=== PATIENT | female | born 1985 | race Native Hawaiian/Other Pacific Islander ===

== ENCOUNTER 2018-08-26 17:34 | Emergency (ER) | payer OTHER ==
[2018-08-26 18:19] LABS: Basophils % (A) 1 %; Eosinophils # (A) 0.2 k/uL (0-0.7); Eosinophils % (A) 3 %; HCT 40.8 % (34.0-46.0); HGB 13.1 gm/dL (11.4-16.0); Lymphocytes # (A) 2.7 k/uL (1.0-4.8); Lymphocytes % (A) 37 %; MCH 28.2 pg (25.0-35.0); MCHC 32.2 g/dL (31.0-37.0); MCV 87.7 fL (80.0-100.0); Monocytes # (A) 0.5 k/uL (0-1.0); Monocytes % (A) 7 %; Neutrophils # (A) 3.7 k/uL (1.3-7.7); Neutrophils % (A) 52 %; Platelet Count 298 k/uL (150-450); RBC 4.66 m/uL (3.80-5.40); RDW 13.1 % (11.5-15.5); WBC 7.2 k/uL (3.8-10.6)
[2018-08-26 18:27] LABS: Amorphous Sediment,Urine Rare /hpf; Appearance,Urine Cloudy (Clear); Bacteria,Urine Moderate /hpf; Bilirubin,Urine Negative (Negative); Blood,Urine Small (Negative); Color,Urine Yellow; Glucose,Urine (UA) Negative (Negative); Ketones,Urine Negative (Negative); Leukocyte Esterase,Urine Negative (Negative); Mucus,Urine Few /hpf; Nitrite,Urine Negative (Negative); Protein,Urine Trace (Negative); RBC,Urine 7 /hpf (0-5); Specific Gravity,Urine 1.025 (1.001-1.035); Squamous Epithelial Cell,Urine 7 /hpf (0-4); WBC,Urine 2 /hpf (0-5)
[2018-08-26 18:31] LABS: ALT 19 U/L (9-52); AST 24 U/L (14-36); Albumin 4.6 g/dL (3.5-5.0); Alkaline Phosphatase 55 U/L (38-126); Anion Gap 10 mmol/L; Blood Urea Nitrogen 12 mg/dL (7-17); Calcium 9.8 mg/dL (8.4-10.2); Carbon Dioxide 25 mmol/L (22-30); Chloride 106 mmol/L (98-107); Glucose 117 mg/dL (74-99); Potassium 3.8 mmol/L (3.5-5.1); Sodium 141 mmol/L (137-145); Total Bilirubin 0.6 mg/dL (0.2-1.3); Total Protein 7.9 g/dL (6.3-8.2)
[2018-08-26 18:35] LABS: Partial Thromboplastin Time 25.7 sec (22.0-30.0); Prothrombin Time 10.2 sec (9.0-12.0)
[2018-08-26 18:41] LABS: Creatine Kinase 56 U/L (30-135)
--- NOTE | 2018-08-26 18:44 | ED ---
Chest Pain HPI <Edmund Guerrero - Last Filed: 08/26/18 19:53> - General Source: patient Mode of arrival: wheelchair Limitations: no limitations <Candy Galvan - Last Filed: 08/26/18 20:11> - General Chief Complaint: Chest Pain Stated Complaint: Chest pain Time Seen by Provider: 08/26/18 17:53 - History of Present Illness Initial Comments: 33-year-old female who denies past medical history presenting today for chief complaint of sensation of chest pressure. Patient states that over the past 5 years she has had episodes at night that occur randomly of her heart racing for a few minutes. She was told to f/u with nut steamer in [place] where she has been attending school and seeking medical attention for the past year. Patient states that she has had in the past year, two 72 hour heart monitors, multiple EKGs and extensive laboratory testing which she stated was all negative. She stated this included thyroid workup. Today patient woke up this morning around 6 AM she states she had chest pressure that occurred for an hour. Patient denies any correlation with ambulation. Patient states that she was sitting at the car with her the onset. Patient denies any syncope, fever, chills, pleuritic chest pain, dizziness, chest pain, hemoptysis, and surgery or trauma including fracture, headache, dyspnea, dyspnea with exertion, unilateral or bilateral lower extremity swelling, history of heart murmur, recent travel, past DVT or pulmonary embolism, calf pain, history of cancer or strenuous. When pt had multiple episodes of chest pressure today that occurred at random times with no pattern pt decided to present to the emergency department today. Upon arrival pt O2 saturation 99%, HR 93 remainder of VS WNL. (Candy Galvan) - Related Data Home Medications Medication Instructions Recorded Confirmed No Known Home Medications 08/26/18 08/26/18 Allergies Allergy/AdvReac Type Severity Reaction Status Date / Time No Known Allergies Allergy Verified 08/26/18 18:15 Review of Systems ROS Other: All systems not noted in ROS Statement are negative. <Edmund Guerrero - Last Filed: 08/26/18 19:53> ROS Other: All systems not noted in ROS Statement are negative. Constitutional: Denies: fever, chills, weight change, night sweats Eyes: Denies: vision change ENT: Denies: ear pain, throat pain Respiratory: Denies: cough, dyspnea, wheezes, hemoptysis, stridor Cardiovascular: Reports: as per HPI, chest pain (c). Denies: palpitations, dyspnea on exertion, orthopnea, edema, syncope Gastrointestinal: Denies: abdominal pain, nausea, vomiting, diarrhea, constipation, hematemesis, melena Genitourinary: Denies: frequency Musculoskeletal: Denies: back pain, joint swelling, arthralgia Skin: Denies: rash <MandyCandy L - Last Filed: 08/26/18 20:11> ROS Statement: Those systems with pertinent positive or pertinent negative responses have been documented in the HPI. EKG Findings - EKG Comments: EKG Findings:: Ventricular rate 70 beats parents VA interval 166 ms QRS duration 116 ms QT/QTC 376/428 ms this is normal sinus rhythm. No ST elevation or T wave inversion concerning for ACS. <RowdyelizCandy L - Last Filed: 08/26/18 20:11> Past Medical History Past Medical History: No Reported History History of Any Multi-Drug Resistant Organisms: None Reported Past Surgical History: No Surgical Hx Reported Past Psychological History: No Psychological Hx Reported Smoking Status: Former smoker Past Alcohol Use History: None Reported Past Drug Use History: None Reported <Candy Galvan - Last Filed: 08/26/18 20:11> General Exam <Edmund Guerrero - Last Filed: 08/26/18 19:53> Limitations: no limitations <Tania Galvankhai Hardin - Last Filed: 08/26/18 20:11> - General Exam Comments Initial Comments: General: The patient is awake and alert, in no distress, and does not appear acutely ill. Eye: Pupils are equal, round and reactive to light, extra-ocular movements are intact. No nystagmus. There is normal conjunctiva bilaterally. No signs of icterus. Ears, nose, mouth and throat: There are moist mucous membranes and no oral lesions. Neck: The neck is supple, there is no tenderness or JVD. Cardiovascular: There is a regular rate and rhythm. No murmur, rub or gallop is appreciated. No audible friction rubs. No carotid artery bruits. Respiratory: Lungs are clear to auscultation, respirations are non-labored, breath sounds are equal. No wheezes, stridor, rales, or rhonchi. Musculoskeletal: Normal ROM, no tenderness. Strength 5/5. Sensation intact. Radial pulses equal bilaterally 2+. Neurological: A&O x 3. CN II-XII intact, There are no obvious motor or sensory deficits. Coordination appears grossly intact. Speech is normal. Skin: Skin is warm and dry and no rashes or lesions are noted. No LE edema. Psychiatric: Cooperative, appropriate mood & affect, normal judgment. (Candy Galvan) Course <Edmund Guerrero - Last Filed: 08/26/18 19:53> <Candy Galvan - Last Filed: 08/26/18 20:11> Vital Signs 08/26/18 08/26/18 17:47 18:49 Temperature 97.6 F 98 F Pulse Rate 91 87 Respiratory 18 18 Rate Blood Pressure 136/88 128/77 O2 Sat by Pulse 100 99 Oximetry - Reevaluation(s) Reevaluation #1: 08/26/18 19:53 Patient reevaluated by myself, Dr. Guerrero. Patient resting comfortably in bed. Patient has no discomfort at this time. Patient states majority of her symptoms were between 7 and 8 AM. Patient is updated on results. Patient is made aware of limitations of tests in the emergency department including delay and troponin testing as well as potential for unrecognized disease and need for stress test. Patient is offered admission however does refuse. Patient is willing to follow up with her primary care physician. Patient states she has been having similar symptoms for years however usually has more palpitations and discomfort. Patient denies any associated dyspnea, nausea, or diaphoresis. states symptoms are only at rest and resolved with exertion. (Edmund Guerrero ) Chest Pain MDM <Edmund Guerrero - Last Filed: 08/26/18 19:53> - Wells Criteria Clinical Symptoms of DVT: (0) No No Alternative Diagnosis: (0) No Immobilization of Surgery in Previous 4 Weeks: (0) No Previous DVT/PE: (0) No Hemoptysis: (0) No Malignancy: (0) No - PERC Rule Heart Rate < 100: (0) No g: (0) No No Prior History pf DVT/PE: (0) No No Recent Trauma or Surgery: (0) No Hemoptysis: (0) No No Exogenous Estrogen: (0) No No Clinical Signs Suggesting DVT: (0) No - ALEXANDRE Score Age > 65: (0) No 3 or more CAD Risk Factors: (0) No Known CAD with more than 50% Stenosis: (0) No Aspirin use within the Past 7 Days: (0) No Elevated Cardiac Markers: (0) No ST Deviation Greater than 0.5mm: (0) No <Candy Galvan - Last Filed: 08/26/18 20:11> - [facility] EKG interrpreted by Dr. Guerrero revealed no signs symptoms of ACS. Labs unremarkable, UA revealed RBC pt denies urinary symptoms and states she may be beginning menstruation. CXR revealed no changes from 2013. PERC (-). 99% on RA , normal rate. Heart score < 3. Low suspicion for ACS or PE. Results discussed with pt. Pt evaluated by Dr. Guerrero. We discussed observation with cardiac telemetry pt deferred this. At this time we feel pt is stable for d/c with PCP and cardiology f/u. We recommended Echo, event monitor and stress testing. Pt agreed. Return parameters were discussed the patient. This time patient denies symptoms, patient is stable for discharge. (Candy Galvan) Disposition <Edmund Guerrero - Last Filed: 08/26/18 19:53> Is patient prescribed a controlled substance at d/c from ED?: No Time of Disposition: 20:02 <Candy Galvan - Last Filed: 08/26/18 20:11> Clinical Impression: Chest tightness or pressure Disposition: HOME SELF-CARE Condition: Good Instructions: Chest Pain (ED) Additional Instructions: Please use medication as discussed. Please follow-up with cardiology within next week and primary care provider in next 1-2 days. Please return to emergency room if the symptoms increase or worsen or for any other concerns, as discussed. Referrals: Yesenia Suero MD [Primary Care Provider] - 1-2 days Morgan Sullivan MD [STAFF PHYSICIAN] - 1-2 days
[2018-08-26 18:54] LABS: Creatine Kinase MB <0.2 ng/mL (0.0-2.4); Troponin I <0.012 ng/mL (0.000-0.034)
--- NOTE | 2018-08-26 19:23 | XR ---
EXAMINATION TYPE: XR chest 2V DATE OF EXAM: 08/26/2018 COMPARISON: Chest x-ray June 12, 2013 HISTORY: Chest pain and heaviness. TECHNIQUE: Frontal and lateral views of the chest are obtained. FINDINGS: There is mild biapical pleural/parenchymal scarring redemonstrated. There is no focal air space opacity, pleural effusion, or pneumothorax seen. The cardiac silhouette size is within normal limits. The osseous structures are intact. IMPRESSION: No acute cardiopulmonary process. No significant change from prior.
[2018-08-26 20:22] VITALS: BP 125/70; PULSE 84; RESP 16; TEMP 98.2
== END 2018-08-26 20:22 | disposition home or self-care (01) ==
LOC: EC 17:34
DX: R07.89 Other chest pain (principal); Z87.891 Personal history of nicotine dependence
CPT/HCPCS: 36415; 71046; 80053; 81001; 81025; 82550; 82553; 83735; 84484; 85025; 85610; 85730; 93005; 99285

== ENCOUNTER 2020-09-03 23:39 | Emergency (ER) | payer OTHER ==
[2020-09-04 00:07] VITALS: RESP 18
[2020-09-04] MEDS ORDERED: ACETAMINOPHEN TAB 325 MG TAB PO STA (00:08)
[2020-09-04] MEDS ORDERED: SODIUM CHLORIDE 0.9% 1,000 ML IV SCH (00:15)
[2020-09-04 00:36] LABS: Amorphous Sediment,Urine Rare /hpf; Appearance,Urine Cloudy (Clear); Bacteria,Urine Rare /hpf; Bilirubin,Urine Negative (Negative); Blood,Urine Trace (Negative); Color,Urine Yellow; Glucose,Urine (UA) Negative (Negative); Ketones,Urine Negative (Negative); Leukocyte Esterase,Urine Negative (Negative); Mucus,Urine Rare /hpf; Nitrite,Urine Negative (Negative); Protein,Urine Negative (Negative); RBC,Urine 4 /hpf (0-5); Specific Gravity,Urine 1.014 (1.001-1.035); Squamous Epithelial Cell,Urine 6 /hpf (0-4); WBC,Urine 2 /hpf (0-5)
[2020-09-04] MEDS: SODIUM CHLORIDE 0.9% 500 ML 500 ML IV SCH ×3 (00:47→01:49)
[2020-09-04 00:57] LABS: Basophils # (A) 0.1 k/uL (0-0.2); Basophils % (A) 2 %; Eosinophils # (A) 0.1 k/uL (0-0.7); Eosinophils % (A) 1 %; HCT 43.9 % (34.0-46.0); HGB 14.4 gm/dL (11.4-16.0); Lymphocytes # (A) 0.6 k/uL (1.0-4.8); Lymphocytes % (A) 9 %; MCH 29.9 pg (25.0-35.0); MCHC 32.8 g/dL (31.0-37.0); Mean Platelet Volume 7.2; Monocytes # (A) 0.4 k/uL (0-1.0); Monocytes % (A) 8 %; Neutrophils # (A) 4.6 k/uL (1.3-7.7); Neutrophils % (A) 79 %; Platelet Count 295 k/uL (150-450); RBC 4.83 m/uL (3.80-5.40); RDW 12.7 % (11.5-15.5); WBC 5.9 k/uL (3.8-10.6)
--- NOTE | 2020-09-04 01:01 | XR ---
EXAMINATION TYPE: XR chest 2V DATE OF EXAM: 09/04/2020 COMPARISON: 08/26/2018 HISTORY: Fever TECHNIQUE: FINDINGS: Heart and mediastinum are normal. Lungs are clear. Diaphragm is normal. Bony thorax appears normal. Pulmonary vascularity is normal. There are chest leads. IMPRESSION: Normal chest. No change.
[2020-09-04 01:05] LABS: ALT 13 U/L (4-34); AST 26 U/L (14-36); African American GFR (CKD) >90 (>60 ml/min/1.73 sqM); Albumin 4.2 g/dL (3.5-5.0); Alkaline Phosphatase 62 U/L (38-126); Anion Gap 8 mmol/L; Blood Urea Nitrogen 9 mg/dL (7-17); Calcium 8.9 mg/dL (8.4-10.2); Carbon Dioxide 25 mmol/L (22-30); Chloride 101 mmol/L (98-107); Creatine Kinase 69 U/L (30-135); Glucose 102 mg/dL (74-99); LDH 450 U/L (313-618); Non-African American GFR(CKD) >90 (>60 ml/min/1.73 sqM); Potassium 3.5 mmol/L (3.5-5.1); Sodium 134 mmol/L (137-145); Total Bilirubin 0.7 mg/dL (0.2-1.3)
[2020-09-04 01:13] LABS: Partial Thromboplastin Time 24.6 sec (22.0-30.0); Prothrombin Time 10.3 sec (9.0-12.0)
[2020-09-04 01:18] LABS: D-Dimer 0.64 mg/L FEU (<0.60)
[2020-09-04] MEDS ORDERED: HYDROmorphone 0.5 MG/0.5 ML SYRINGE IVP STA (02:01)
--- NOTE | 2020-09-04 02:09 | CT ---
EXAMINATION TYPE: CT chest angio for PE DATE OF EXAM: 09/04/2020 COMPARISON: None HISTORY: elevated d-dimer CT DLP: 201.2 mGycm Automated exposure control for dose reduction was used. CONTRAST: Performed with IV Contrast, patient injected with 60 mL of Isovue 370. There are 3-D post processed images. Lungs are clear of infiltrate. There is no pleural effusion. There is no evidence of a pulmonary mass . Mediastinum is normal. There are no hilar masses. Thoracic aorta appears normal. There is no aneurysm or dissection. There is normal contrast opacification of the pulmonary arteries. There are no filling defects. The thoracic spine is intact. There is no compression fracture. The ribs appear intact. Upper abdomin al soft tissues are intact. IMPRESSION: Negative exam. No evidence of pulmonary embolism.
--- NOTE | 2020-09-04 03:01 | ED ---
Fever HPI - General Chief Complaint: Fever Stated Complaint: Fever Time Seen by Provider: 09/04/20 00:25 Source: patient Mode of arrival: ambulatory Limitations: no limitations - History of Present Illness Initial Comments: 35-year-old female presenting today for chief complaint of fever headache body aches. Patient states yesterday she felt completely normal but today she developed chills and general malaise fatigue as well as a headache. She denies any neck stiffness or pain. She denies any visual changes sensitivity to lights. She denies sudden onset of headache. Patient denies any IV drug use cough or upper respiratory symptoms. She denies abdominal pain pelvic pain and vaginal discharge dysuria or urgency frequency. Patient denies any localizing symptoms she states she only has body aches of the toe she states is a burning pain in all her muscles. Denies nausea, vomiting. Patient sates she has not experienced this in the past patient states she was concerned of Covid she states she has no known exposure specifically. Patient states that when she continued to feel unwell and her friend felt her forehead stating she felt very warm and brought her to the ER. Patient has no additional complaints. Upon arrival he appears well nontoxic. - Related Data Home Medications Medication Instructions Recorded Confirmed No Known Home Medications 08/26/18 08/26/18 Allergies Allergy/AdvReac Type Severity Reaction Status Date / Time No Known Allergies Allergy Verified 09/04/20 00:07 Review of Systems ROS Statement: Those systems with pertinent positive or pertinent negative responses have been documented in the HPI. ROS Other: All systems not noted in ROS Statement are negative. Past Medical History Past Medical History: No Reported History History of Any Multi-Drug Resistant Organisms: None Reported Past Surgical History: No Surgical Hx Reported Past Psychological History: No Psychological Hx Reported Smoking Status: Never smoker Past Alcohol Use History: Occasional Past Drug Use History: None Reported General Exam - General Exam Comments Initial Comments: General: The patient is awake and alert, in no distress Eye: +3 mm pupils are equal, round and reactive to light, extra-ocular movements are intact. No nystagmus. There is normal conjunctiva bilaterally. No signs of icterus. No photophobia Ears, nose, mouth and throat: There are moist mucous membranes and no oral lesions. Oropharynx nonerythematous uvula midline. TM WNL. Neck: The neck is supple, there is no tenderness or JVD. Negative Brudzinski negative Kernig no nuchal rigidity Cardiovascular: There is a regular rate and rhythm. No murmur, rub or gallop is appreciated. Respiratory: Lungs are clear to auscultation, respirations are non-labored, breath sounds are equal. No wheezes, stridor, rales, or rhonchi. Gastrointestinal: Soft, non-distended, non-tender abdomen without masses or organomegaly noted. There is no rebound or guarding present. Musculoskeletal: Normal ROM, no tenderness. Strength 5/5. Sensation intact. Radial pulses equal bilaterally 2+. Neurological: A&O x 3. CN II-XII intact, There are no obvious motor or sensory deficits. Coordination appears grossly intact. Speech is normal. Skin: Skin is warm and dry and no rashes or lesions are noted. No LE edema. No tract davila. Psychiatric: Cooperative, appropriate mood & affect, normal judgment. Limitations: no limitations Course Vital Signs 09/04/20 09/04/20 00:03 03:00 Temperature 103.5 F H 98.3 F Pulse Rate 117 H 97 Respiratory 18 18 Rate Blood Pressure 144/86 123/82 O2 Sat by Pulse 99 98 Oximetry - Reevaluation(s) Reevaluation #1: On reevaluation patient states headache resolved, fever trending downward. continues to appear well nontoxic. Medical Decision Making - Medical Decision Making 35yo female presenting with fever. no localizing symptoms complains of myalgias. Denies IVDU. Patient appears well nontoxic very acting and happily talking with friend/ laughing in good spirits Patient has no localizing exam findings. SKine exa,m WNL. Abdomen soft. No meningeal irritation signs. Patient after fever controlled, pain medications given states headaches completely resolved. Labs no leukocytosis. Blood cultures pending. Dimer mildly elevated, CTA (-) for acute process, no pneumonia identified nor PE. Patient covid test pending. givne patient well appearance, vaccination status, no hx concerning for immunoc ompromise I feel patient is stable for discharge with PCP f/u. return parameters. Patient case discussed at length with attendin nicci reviewed imaging and labs Dr. Hinkle is agreeable to discharge as well as patient. Patient instructed on symptomatic treatment, educated on return parametrs. Discharged appearing well nontoxic. - Lab Data Result diagrams: 09/04/20 00:15 09/04/20 00:15 Lab Results 09/04/20 09/04/20 09/04/20 Range/Units 00:15 00:15 00:15 WBC 5.9 (3.8-10.6) k/uL RBC 4.83 (3.80-5.40) m/uL Hgb 14.4 (11.4-16.0) gm/dL Hct 43.9 (34.0-46.0) % MCV 91.0 (80.0-100.0) fL MCH 29.9 (25.0-35.0) pg MCHC 32.8 (31.0-37.0) g/dL RDW 12.7 (11.5-15.5) % Plt Count 295 (150-450) k/uL Neutrophils % 79 % Lymphocytes % 9 % Monocytes % 8 % Eosinophils % 1 % Basophils % 2 % Neutrophils # 4.6 (1.3-7.7) k/uL Lymphocytes # 0.6 L (1.0-4.8) k/uL Monocytes # 0.4 (0-1.0) k/uL Eosinophils # 0.1 (0-0.7) k/uL Basophils # 0.1 (0-0.2) k/uL PT 10.3 (9.0-12.0) sec INR 1.0 (<1.2) APTT 24.6 (22.0-30.0) sec D-Dimer 0.64 H (<0.60) mg/L FEU Sodium (137-145) mmol/L Potassium (3.5-5.1) mmol/L Chloride (98-107) mmol/L Carbon Dioxide (22-30) mmol/L Anion Gap mmol/L BUN (7-17) mg/dL Creatinine (0.52-1.04) mg/dL Est GFR (CKD-EPI)AfAm (>60 ml/min/1.73 sqM) Est GFR (CKD-EPI)NonAf (>60 ml/min/1.73 sqM) Glucose (74-99) mg/dL Plasma Lactic Acid Ryne (0.7-2.0) mmol/L Calcium (8.4-10.2) mg/dL Ferritin (10.0-291.0) ng/mL Total Bilirubin (0.2-1.3) mg/dL AST (14-36) U/L ALT (4-34) U/L Alkaline Phosphatase (38-126) U/L Lactate Dehydrogenase (313-618) U/L Creatine Kinase (30-135) U/L Total Protein (6.3-8.2) g/dL Albumin (3.5-5.0) g/dL Urine Color Urine Appearance (Clear) Urine pH (5.0-8.0) Ur Specific Republic (1.001-1.035) Urine Protein (Negative) Urine Glucose (UA) (Negative) Urine Ketones (Negative) Urine Blood (Negative) Urine Nitrite (Negative) Urine Bilirubin (Negative) Urine Urobilinogen (<2.0) mg/dL Ur Leukocyte Esterase (Negative) Urine RBC (0-5) /hpf Urine WBC (0-5) /hpf Ur Squamous Epith Cells (0-4) /hpf Amorphous Sediment (None) /hpf Urine Bacteria (None) /hpf Urine Mucus (None) /hpf Urine HCG, Qual Not Detected (Not Detectd) Influenza Type A RNA (Not Detectd) Influenza Type B (PCR) (Not Detectd) 09/04/20 09/04/20 09/04/20 Range/Units 00:15 00:15 00:15 WBC (3.8-10.6) k/uL RBC (3.80-5.40) m/uL Hgb (11.4-16.0) gm/dL Hct (34.0-46.0) % MCV (80.0-100.0) fL MCH (25.0-35.0) pg MCHC (31.0-37.0) g/dL RDW (11.5-15.5) % Plt Count (150-450) k/uL Neutrophils % % Lymphocytes % % Monocytes % % Eosinophils % % Basophils % % Neutrophils # (1.3-7.7) k/uL Lymphocytes # (1.0-4.8) k/uL Monocytes # (0-1.0) k/uL Eosinophils # (0-0.7) k/uL Basophils # (0-0.2) k/uL PT (9.0-12.0) sec INR (<1.2) APTT (22.0-30.0) sec D-Dimer (<0.60) mg/L FEU Sodium 134 L (137-145) mmol/L Potassium 3.5 (3.5-5.1) mmol/L Chloride 101 (98-107) mmol/L Carbon Dioxide 25 (22-30) mmol/L Anion Gap 8 mmol/L BUN 9 (7-17) mg/dL Creatinine 0.72 (0.52-1.04) mg/dL Est GFR (CKD-EPI)AfAm >90 (>60 ml/min/1.73 sqM) Est GFR (CKD-EPI)NonAf >90 (>60 ml/min/1.73 sqM) Glucose 102 H (74-99) mg/dL Plasma Lactic Acid Ryne 0.8 (0.7-2.0) mmol/L Calcium 8.9 (8.4-10.2) mg/dL Ferritin 10.8 (10.0-291.0) ng/mL Total Bilirubin 0.7 (0.2-1.3) mg/dL AST 26 (14-36) U/L ALT 13 (4-34) U/L Alkaline Phosphatase 62 (38-126) U/L Lactate Dehydrogenase 450 (313-618) U/L Creatine Kinase 69 (30-135) U/L Total Protein 7.0 (6.3-8.2) g/dL Albumin 4.2 (3.5-5.0) g/dL Urine Color Yellow Urine Appearance Cloudy H (Clear) Urine pH 8.0 (5.0-8.0) Ur Specific Republic 1.014 (1.001-1.035) Urine Protein Negative (Negative) Urine Glucose (UA) Negative (Negative) Urine Ketones Negative (Negative) Urine Blood Trace H (Negative) Urine Nitrite Negative (Negative) Urine Bilirubin Negative (Negative) Urine Urobilinogen 4.0 (<2.0) mg/dL Ur Leukocyte Esterase Negative (Negative) Urine RBC 4 (0-5) /hpf Urine WBC 2 (0-5) /hpf Ur Squamous Epith Cells 6 H (0-4) /hpf Amorphous Sediment Rare H (None) /hpf Urine Bacteria Rare H (None) /hpf Urine Mucus Rare H (None) /hpf Urine HCG, Qual (Not Detectd) Influenza Type A RNA (Not Detectd) Influenza Type B (PCR) (Not Detectd) 09/04/20 Range/Units 00:15 WBC (3.8-10.6) k/uL RBC (3.80-5.40) m/uL Hgb (11.4-16.0) gm/dL Hct (34.0-46.0) % MCV (80.0-100.0) fL MCH (25.0-35.0) pg MCHC (31.0-37.0) g/dL RDW (11.5-15.5) % Plt Count (150-450) k/uL Neutrophils % % Lymphocytes % % Monocytes % % Eosinophils % % Basophils % % Neutrophils # (1.3-7.7) k/uL Lymphocytes # (1.0-4.8) k/uL Monocytes # (0-1.0) k/uL Eosinophils # (0-0.7) k/uL Basophils # (0-0.2) k/uL PT (9.0-12.0) sec INR (<1.2) APTT (22.0-30.0) sec D-Dimer (<0.60) mg/L FEU Sodium (137-145) mmol/L Potassium (3.5-5.1) mmol/L Chloride (98-107) mmol/L Carbon Dioxide (22-30) mmol/L Anion Gap mmol/L BUN (7-17) mg/dL Creatinine (0.52-1.04) mg/dL Est GFR (CKD-EPI)AfAm (>60 ml/min/1.73 sqM) Est GFR (CKD-EPI)NonAf (>60 ml/min/1.73 sqM) Glucose (74-99) mg/dL Plasma Lactic Acid Ryne (0.7-2.0) mmol/L Calcium (8.4-10.2) mg/dL Ferritin (10.0-291.0) ng/mL Total Bilirubin (0.2-1.3) mg/dL AST (14-36) U/L ALT (4-34) U/L Alkaline Phosphatase (38-126) U/L Lactate Dehydrogenase (313-618) U/L Creatine Kinase (30-135) U/L Total Protein (6.3-8.2) g/dL Albumin (3.5-5.0) g/dL Urine Color Urine Appearance (Clear) Urine pH (5.0-8.0) Ur Specific Republic (1.001-1.035) Urine Protein (Negative) Urine Glucose (UA) (Negative) Urine Ketones (Negative) Urine Blood (Negative) Urine Nitrite (Negative) Urine Bilirubin (Negative) Urine Urobilinogen (<2.0) mg/dL Ur Leukocyte Esterase (Negative) Urine RBC (0-5) /hpf Urine WBC (0-5) /hpf Ur Squamous Epith Cells (0-4) /hpf Amorphous Sediment (None) /hpf Urine Bacteria (None) /hpf Urine Mucus (None) /hpf Urine HCG, Qual (Not Detectd) Influenza Type A RNA Not Detected (Not Detectd) Influenza Type B (PCR) Not Detected (Not Detectd) Disposition Clinical Impression: Fever, Body aches, Headache Disposition: HOME SELF-CARE Condition: Good Instructions (If sedation given, give patient instructions): Fever in Adults (ED) Additional Instructions: Please use medication as discussed. Please follow-up with family doctor in the next 2 days. Return for any neck stiffness. Please return to emergency room if the symptoms increase or worsen or for any other concerns. Is patient prescribed a controlled substance at d/c from ED?: No Referrals: Yesenia Suero MD [Primary Care Provider] - 1-2 days Time of Disposition: 03:06
[2020-09-04 03:03] VITALS: BP 123/82; PULSE 97; TEMP 98.3
[2020-09-04 09:54] LABS: Ferritin 10.8 ng/mL (10.0-291.0)
== END 2020-09-04 03:22 | disposition home or self-care (01) ==
LOC: EC 23:39
DX: R50.9 Fever, unspecified (principal); Z20.828 Contact with and (suspected) exposure to other viral communicable diseases; R51.9 Headache, unspecified
CPT/HCPCS: 99284 ×2; 96374 ×2; 96361 ×4; 36415; 93005; 85379; 80053; 82728; 82550; 83605; 83615; 85025; 85610; 85730; 81001; 81025; 87040; 87502; 71046; 71275; U0003; J1170; Q9967

== ENCOUNTER → 2020-11-16 | Outpatient (CLI) | payer OTHER ==
[2020-11-16 13:44] VITALS: BP 123/81; PULSE 96; RESP 16; TEMP 97.9
--- NOTE | 2020-11-16 14:48 | P.HPOB ---
History of Present Illness H&P Date: 11/16/20 Chief Complaint: Vaginal symptoms and abnormal Pap smear started 2 months ago This is a 35-year-old with an LMP of 11/10/2020. The patient has been a since July 2019. She had a new sexual partner during the month of August of this year. They had unprotected intercourse. She states this has been her only sexual partner since her last year. After being sexually active with this person for 1 month, she started noticing slight vaginal discharge with odor. She was seen at Dr. Maciel's office for this. Pap smear was done which showed ASCUS with shift in the vaginal gloria suggestive of bacterial vaginosis. She was treated with metronidazole. This Pap smear was done on 09/30/2020 and high-risk HPV testing was negative. GC and chlamydia testing were also negative. She is no longer with the person she was sexually active with in August. She still notices slight discharge and odor. She has also been having recent urinary frequency. She still has some vaginal irritation and wonders if she still has a vaginal infection. Review of Systems The patient has gained 2 pounds over the last year. She denies respiratory or GI problems. Cardiac: Occasional heart racing at night and she is currently undergoing a workup for this. 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 History of Any Multi-Drug Resistant Organisms: None Reported Past Surgical History: No Surgical Hx Reported Past Psychological History: No Psychological Hx Reported Smoking Status: Former smoker Past Alcohol Use History: None Reported Additional Past Alcohol Use History / Comment(s): Smoked briefly as a teenager. Past Drug Use History: None Reported Additional History: She has been a since July 2019. She is currently not seeing anybody at this time. - Past Family History Father Family Medical History: Diabetes Mellitus Medications and Allergies Home Medications Medication Instructions Recorded Confirmed Type No Known Home Medications 08/26/18 11/16/20 History Allergies Allergy/AdvReac Type Severity Reaction Status Date / Time No Known Allergies Allergy Verified 11/16/20 13:41 Exam Vital Signs Temp Pulse Resp BP Pulse Ox 11/16/20 13:42 97.9 F 96 16 123/81 98 Intake and Output 11/15/20 11/16/20 11/16/20 22:59 06:59 14:59 Other: Weight 51.71 kg Height 5 feet 3 inches, weight 114 pounds, BMI 20.2. This is a well-developed well-nourished female who is alert and oriented times 3 in no acute distress. HEENT: Within normal limits. CHEST AND LUNGS: Clear to auscultation. HEART: Regular rate and rhythm. BACK: Negative for CVA tenderness. ABDOMEN: Soft, nontender, without palpable masses. PELVIC EXAM: Normal external genitalia. Cervix and vagina appear normal except for a moderate amount of slightly brownish discharge with the consistency of saliva. No significant odor is noted however this is more difficult to assess with a mask on. There is no cervical motion tenderness. There is no evidence of prolapse. The uterus is midposition, nongravid size and nontender. There are no palpable adnexal masses or tenderness. EXTREMITIES: Nontender. IMPRESSION: 1. 35-year-old female with a brief sexual relationship in August 2020. Vaginal discharge is noted on exam with no evidence of inflammatory disease. GC and chlamydia testing was negative. Differential diagnosis will include bacterial vaginosis, Trichomonas as well as abundant physiologic discharge. 2. Paps are showing ASCUS with negative high-risk HPV testing. The Pap smear also showed a shift in the vaginal gloria suggestive of bacterial vaginosis. She was treated with a one-week course of metronidazole by her PCP. 3. Urinary frequency. Possible UTI. PLAN: 1. Affirm vaginitis panel for moses, Gardnerella, and Trichomonas was obtained from the vagina. 2. We have had a long discussion regarding types of vaginitis and possible causes for discharge. 3. STD prevention was discussed. She will be tested for HIV, RPR, hepatitis B surface antigen and hepatitis C antibody. I have stressed the importance of limiting sexual partners and I have recommended that she use condoms if she is sexually active. She was also instructed to call if she develops blister like symptoms so she can be tested for HSV at that time. 4. Urine will be sent for urinalysis and urine culture with sensitivity. 5. We have discussed her abnormal Pap smear. She has not had any history of abnormal Pap smears in the past. With ASCUS and high risk HPV testing negative, we will plan on repeating Pap smear cotest in 2-3 years. 6. She will also return in 1 year and as needed.
[2020-11-16 20:43] LABS: Appearance,Urine Cloudy (Clear); Bacteria,Urine Rare /hpf; Bilirubin,Urine Negative (Negative); Blood,Urine Small (Negative); Color,Urine Yellow; Glucose,Urine (UA) Negative (Negative); Ketones,Urine Negative (Negative); Leukocyte Esterase,Urine Negative (Negative); Mucus,Urine Many /hpf; Nitrite,Urine Negative (Negative); Protein,Urine Trace (Negative); RBC,Urine 3 /hpf (0-5); Specific Gravity,Urine 1.028 (1.001-1.035); Squamous Epithelial Cell,Urine 3 /hpf (0-4); WBC,Urine 2 /hpf (0-5)
[2020-11-16 21:24] LABS: Hepatitis B Surface Antigen Non-Reactive (Non-Reactive); Hepatitis C IgG Antibody Non-Reactive (Non-Reactive)
[2020-11-17 00:53] LABS: HIV 2 AB Non-Reactive (Non-Reactive); HIV AB P24 Non-Reactive (Non-Reactive); HIV P24 AG Non-Reactive (Non-Reactive)
[2020-11-17 04:30] LABS: Gardnerella Negative (Negative); Source Vagina; Trichomonas Negative (Negative)
--- NOTE | 2020-11-17 14:55 | P.PN ---
Progress Note - Text Progress Note Date: 11/17/20 OUTPATIENT FOLLOW-UP NOTE TEST(S)/RESULTS: Test results done on 11/16/2020 include negative affirm testing for moses, Gardnerella, and Trichomonas. Urinalysis was negative for leukocyte esterase and negative for nitrite with small blood noted. Blood tests include negative RPR, negative HIV, negative hepatitis B surface antigen, and negative hepatitis C antibody. METHOD OF NOTIFICATION: The patient was notified of these results. PATIENT COMMENTS: DIAGNOSIS: Negative blood STD testing, negative affirm vaginitis panel and urinalysis showing small blood with no other evidence of UTI. DISCUSSION: Because the patient's recent Pap smear showed bacterial vaginosis and she continues to have vaginal discharge and odor after being treated with oral metronidazole, she will be treated with MetroGel vaginal daily at bedtime into the vagina 5 days. The electronic prescription will be sent to [facility] on [address]. PLAN: Await urine culture.
== END | disposition home or self-care (01) ==
LOC: WWCWWP 13:32
PROVIDERS: ATTEND Obstetrics & Gynecology
DX: N89.8 Other specified noninflammatory disorders of vagina (principal); Z11.3 Encounter for screening for infections with a predominantly sexual mode of transmission
CPT/HCPCS: 81001; 86780; 86803; 87086; 87340; 87390; 87480; 87510; 87660

== ENCOUNTER 2020-11-22 22:29 | Emergency (ER) | payer OTHER ==
[2020-11-22 22:34] VITALS: RESP 18
--- NOTE | 2020-11-22 22:48 | ED ---
Chest Pain HPI - General Chief Complaint: Chest Pain Stated Complaint: Chest Pain Time Seen by Provider: 11/22/20 22:47 Source: patient, RN notes reviewed, old records reviewed Mode of arrival: wheelchair Limitations: no limitations - History of Present Illness Initial Comments: This is a 35-year-old female DF for chest pain left-sided chest pain chest and went to her back. A she has persistent chest pain episodically here in the ER. A lower does get better at times. Symptoms started on new today does have a family history of heart disease the patient herself has no high blood pressure high cholesterol diabetes nonsmoker. No other new complaints MD Complaint: chest pain -: hour(s) (12) Onset: during rest, during exertion Pain Location: substernal Pain Radiation: back Severity scale (1-10): 4 Quality: tightness Consistency: intermittent Improves With: nothing Worsens With: nothing Anginal Symptoms: nausea, dyspnea Other Symptoms: cough Treatments Prior to Arrival: none - Related Data Home Medications Medication Instructions Recorded Confirmed No Known Home Medications 11/22/20 11/22/20 Allergies Allergy/AdvReac Type Severity Reaction Status Date / Time No Known Allergies Allergy Verified 11/22/20 23:12 Review of Systems ROS Statement: Those systems with pertinent positive or pertinent negative responses have been documented in the HPI. ROS Other: All systems not noted in ROS Statement are negative. 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 History of Any Multi-Drug Resistant Organisms: None Reported Past Surgical History: No Surgical Hx Reported Past Psychological History: No Psychological Hx Reported Smoking Status: Former smoker Past Alcohol Use History: None Reported Past Drug Use History: None Reported - Past Family History Father Family Medical History: Diabetes Mellitus General Exam Limitations: no limitations General appearance: alert, in no apparent distress Head exam: Present: atraumatic, normocephalic, normal inspection Eye exam: Present: normal appearance, PERRL, EOMI. Absent: scleral icterus, c onjunctival injection, periorbital swelling ENT exam: Present: normal exam, mucous membranes moist Neck exam: Present: normal inspection. Absent: tenderness, meningismus, lymphadenopathy Respiratory exam: Present: normal lung sounds bilaterally. Absent: respiratory distress, wheezes, rales, rhonchi, stridor Cardiovascular Exam: Present: regular rate, normal rhythm, normal heart sounds. Absent: systolic murmur, diastolic murmur, rubs, gallop, clicks GI/Abdominal exam: Present: soft, normal bowel sounds. Absent: distended, tenderness, guarding, rebound, rigid Extremities exam: Present: normal inspection, full ROM, normal capillary refill. Absent: tenderness, pedal edema, joint swelling, calf tenderness Back exam: Present: normal inspection Neurological exam: Present: alert, oriented X3, CN II-XII intact Psychiatric exam: Present: normal affect, normal mood Skin exam: Present: warm, dry, intact, normal color. Absent: rash Course Vital Signs 11/22/20 22:31 Temperature 98.2 F Pulse Rate 72 Respiratory 18 Rate Blood Pressure 136/96 - Reevaluation(s) Reevaluation #1: 11/23/20 01:14 Medical record is reviewed Reevaluation #2: 11/23/20 01:15 Patient has pain control, no shortness of breath Chest Pain MDM - MDM 35 female to the ER for evaluation patient having severe pain chest pain, per pain is all resolved here in the ER. Patient has normal troponin normal EKG CT is negative patient deemed stable for discharge home Disposition Clinical Impression: Atypical chest pain, Chest pain Disposition: HOME SELF-CARE Condition: Good Instructions (If sedation given, give patient instructions): Chest Pain (ED) Is patient prescribed a controlled substance at d/c from ED?: No Referrals: Yesenia Suero MD [Primary Care Provider] - 1-2 days
[2020-11-22] MEDS ORDERED: SODIUM CHLORIDE 0.9% 1,000 ML IV STA (23:36)
[2020-11-22 23:53] LABS: Basophils # (A) 0.1 k/uL (0-0.2); Basophils % (A) 1 %; Eosinophils # (A) 0.1 k/uL (0-0.7); Eosinophils % (A) 2 %; HCT 37.9 % (34.0-46.0); HGB 12.9 gm/dL (11.4-16.0); Lymphocytes # (A) 2.7 k/uL (1.0-4.8); Lymphocytes % (A) 44 %; MCH 28.8 pg (25.0-35.0); MCHC 34.1 g/dL (31.0-37.0); MCV 84.4 fL (80.0-100.0); Mean Platelet Volume 7.3; Monocytes # (A) 0.4 k/uL (0-1.0); Monocytes % (A) 6 %; Neutrophils # (A) 2.9 k/uL (1.3-7.7); Neutrophils % (A) 46 %; Platelet Count 325 k/uL (150-450); RDW 14.4 % (11.5-15.5); WBC 6.3 k/uL (3.8-10.6)
[2020-11-23 00:04] LABS: ALT 14 U/L (4-34); AST 25 U/L (14-36); African American GFR (CKD) >90 (>60 ml/min/1.73 sqM); Albumin 4.3 g/dL (3.5-5.0); Alkaline Phosphatase 73 U/L (38-126); Anion Gap 5 mmol/L; Blood Urea Nitrogen 12 mg/dL (7-17); Calcium 9.8 mg/dL (8.4-10.2); Carbon Dioxide 26 mmol/L (22-30); Chloride 104 mmol/L (98-107); Creatine Kinase 51 U/L (30-135); Glucose 96 mg/dL (74-99); Lipase 258 U/L (23-300); Magnesium 1.9 mg/dL (1.6-2.3); Non-African American GFR(CKD) >90 (>60 ml/min/1.73 sqM); Potassium 3.9 mmol/L (3.5-5.1); Sodium 135 mmol/L (137-145); Total Bilirubin 0.6 mg/dL (0.2-1.3); Total Protein 7.6 g/dL (6.3-8.2)
--- NOTE | 2020-11-23 00:09 | XR ---
EXAMINATION TYPE: XR chest 2V DATE OF EXAM: 11/22/2020 COMPARISON: 09/04/2020 HISTORY: Fever. Nausea. TECHNIQUE: 2 views FINDINGS: Heart and mediastinum are normal. Lungs are clear. Diaphragm is normal. Bony thorax appears normal there are chest leads. IMPRESSION: Normal chest. No change.
[2020-11-23 00:14] LABS: Creatine Kinase MB <0.2 ng/mL (0.0-2.4); Partial Thromboplastin Time 24.3 sec (22.0-30.0); Prothrombin Time 10.1 sec (9.0-12.0); Troponin I <0.012 ng/mL (0.000-0.034)
--- NOTE | 2020-11-23 00:54 | CT ---
EXAM: CT Angiography Chest With Intravenous Contrast CLINICAL HISTORY: ITS.REASON CT Reason: cp TECHNIQUE: Axial computed tomographic angiography images of the chest with intravenous contrast. CTDI is 10.07 mGy and DLP is 226.90 mGy-cm. This CT exam was performed using one or more of the following dose reduction techniques: automated exposure control, adjustment of the mA and/or kV according to patient size, and/or use of iterative reconstruction technique. MIP reconstructed images were created and reviewed. COMPARISON: September 04, 2020. FINDINGS: Pulmonary arteries: Unremarkable. No pulmonary embolism. Aorta: No acute findings. No thoracic aortic aneurysm. Lungs: Unremarkable. No mass. No consolidation. Pleural space: Unremarkable. No significant effusion. No pneumothorax. Heart: Unremarkable. No cardiomegaly. No significant pericardial effusion. No evidence of RV dysfunction. Bones/joints: No acute fracture. No dislocation. Soft tissues: Unremarkable. Lymph nodes: Unremarkable. No enlarged lymph nodes. IMPRESSION: No evidence of pulmonary embolism or acute aortic abnormality. No acute process is seen within the chest.
[2020-11-23 01:47] VITALS: BP 111/81; PULSE 66; TEMP 98.5
== END 2020-11-23 01:51 | disposition home or self-care (01) ==
LOC: EC 22:29
DX: R07.89 Other chest pain (principal); Z87.891 Personal history of nicotine dependence
CPT/HCPCS: 36415; 93005; 83880; 80053; 82550; 82553; 83690; 83735; 84484; 85025; 85610; 85730; 71046; 71275; 99285; 96360; 96361; Q9967

== ENCOUNTER 2021-11-04 07:50 | Emergency (ER) | payer OTHER ==
[2021-11-04 07:56] VITALS: PULSE 85; RESP 18; TEMP 98.5
--- NOTE | 2021-11-04 08:07 | ED ---
General Adult HPI - General Chief complaint: Upper Respiratory Infection Stated complaint: fever, poss covid Time Seen by Provider: 11/04/21 07:57 Source: patient, RN notes reviewed Mode of arrival: ambulatory Limitations: no limitations - History of Present Illness Initial comments: Patient is a pleasant 36-year-old female presenting to the emergency department with concern for COVID-19 infection. Onset of symptoms was 5-6 days ago. Patient has been having some fevers and chills and myalgias. Patient has had some nasal congestion. Patient has loss of taste. No cough. Patient has some mild fatigue. No dyspnea. Patient has nausea in the morning. No vomiting. No change in appetite. Patient has had some urinary frequency - Related Data Home Medications Medication Instructions Recorded Confirmed No Known Home Medications 11/22/20 11/04/21 Allergies Allergy/AdvReac Type Severity Reaction Status Date / Time No Known Allergies Allergy Verified 11/04/21 08:48 Review of Systems ROS Statement: Those systems with pertinent positive or pertinent negative responses have been documented in the HPI. ROS Other: All systems not noted in ROS Statement are negative. Constitutional: Reports: as per HPI, fever, chills Eyes: Denies: eye pain ENT: Reports: congestion. Denies: ear pain Respiratory: Denies: cough, dyspnea Cardiovascular: Denies: chest pain Endocrine: Reports: fatigue Gastrointestinal: Reports: nausea. Denies: abdominal pain, vomiting Genitourinary: Reports: frequency. 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 History of Any Multi-Drug Resistant Organisms: None Reported Past Surgical History: No Surgical Hx Reported Past Psychological History: No Psychological Hx Reported Smoking Status: Never smoker Past Alcohol Use History: None Reported Past Drug Use History: None Reported - Past Family History Father Family Medical History: Diabetes Mellitus General Exam Limitations: no limitations General appearance: alert, in no apparent distress Head exam: Present: normocephalic Eye exam: Present: normal appearance Neck exam: Present: normal inspection Respiratory exam: Present: normal lung sounds bilaterally Cardiovascular Exam: Present: regular rate, normal rhythm GI/Abdominal exam: Present: soft. Absent: tenderness Extremities exam: Present: normal inspection Neurological exam: Present: alert Psychiatric exam: Present: normal affect, normal mood Skin exam: Present: normal color Course Vital Signs 11/04/21 07:53 Temperature 98.5 F Pulse Rate 85 Respiratory 18 Rate Blood Pressure 148/104 O2 Sat by Pulse 97 Oximetry Medical Decision Making - Medical Decision Making Patient reevaluated and updated - Lab Data Lab Results 11/04/21 11/04/21 11/04/21 Range/Units 08:06 08:15 08:15 Urine Color Yellow Urine Appearance Cloudy H (Clear) Urine pH 6.0 (5.0-8.0) Ur Specific [place] 1.027 (1.001-1.035) Urine Protein Trace H (Negative) Urine Glucose (UA) Negative (Negative) Urine Ketones 1+ H (Negative) Urine Blood Small H (Negative) Urine Nitrite Negative (Negative) Urine Bilirubin Negative (Negative) Urine Urobilinogen <2.0 (<2.0) mg/dL Ur Leukocyte Esterase Negative (Negative) Urine RBC 2 (0-5) /hpf Urine WBC 3 (0-5) /hpf Ur Squamous Epith Cells 24 H (0-4) /hpf Hyaline Casts 1 (0-2) /lpf Urine Mucus Many H (None) /hpf Urine HCG, Qual Not Detected (Not Detectd) Coronavirus (PCR) Not Detected (Not Detectd) Disposition Clinical Impression: Acute upper respiratory infection Disposition: HOME SELF-CARE Condition: Stable Instructions (If sedation given, give patient instructions): Upper Respiratory Infection (ED) Additional Instructions: [id number] Tylenol as needed. Please follow-up with primary care physician in the next couple days for recheck. Return for difficulty breathing, not tolerating oral intake, worsening symptoms or other concerns. Is patient prescribed a controlled substance at d/c from ED?: No Referrals: Yesenia Suero MD [Primary Care Provider] - 1-2 days Time of Disposition: 10:18
[2021-11-04 09:15] LABS: Appearance,Urine Cloudy (Clear); Bilirubin,Urine Negative (Negative); Blood,Urine Small (Negative); Color,Urine Yellow; Glucose,Urine (UA) Negative (Negative); Hyaline Casts,Urine 1 /lpf (0-2); Ketones,Urine 1+ (Negative); Leukocyte Esterase,Urine Negative (Negative); Mucus,Urine Many /hpf; Nitrite,Urine Negative (Negative); Protein,Urine Trace (Negative); RBC,Urine 2 /hpf (0-5); Specific Gravity,Urine 1.027 (1.001-1.035); Squamous Epithelial Cell,Urine 24 /hpf (0-4); Urobilinogen,Urine <2.0 mg/dL (<2.0); WBC,Urine 3 /hpf (0-5)
[2021-11-04 10:20] VITALS: BP 107/85
== END 2021-11-04 10:26 | disposition home or self-care (01) ==
LOC: EC 07:50
DX: J06.9 Acute upper respiratory infection, unspecified (principal)
CPT/HCPCS: 81001; 81025; 87635; 99283

== ENCOUNTER 2022-04-11 03:32 | Emergency (ER) | payer OTHER ==
[2022-04-11 03:40] VITALS: RESP 18
[2022-04-11 06:13] LABS: Appearance,Urine Clear (Clear); Basophils % (A) 0 %; Bilirubin,Urine Negative (Negative); Blood,Urine Moderate (Negative); Color,Urine Light Yellow; Eosinophils # (A) 0.2 k/uL (0-0.7); Eosinophils % (A) 2 %; Glucose,Urine (UA) Negative (Negative); HCT 30.5 % (34.0-46.0); HGB 10.3 gm/dL (11.4-16.0); Ketones,Urine Negative (Negative); Leukocyte Esterase,Urine Negative (Negative); Lymphocytes # (A) 2.1 k/uL (1.0-4.8); Lymphocytes % (A) 31 %; MCH 30.6 pg (25.0-35.0); MCHC 33.9 g/dL (31.0-37.0); MCV 90.3 fL (80.0-100.0); Mean Platelet Volume 7.3; Monocytes # (A) 0.4 k/uL (0-1.0); Monocytes % (A) 6 %; Mucus,Urine Rare /hpf; Neutrophils # (A) 3.8 k/uL (1.3-7.7); Neutrophils % (A) 57 %; Nitrite,Urine Negative (Negative); PH, Urine 6.5 (5.0-8.0); Platelet Count 256 k/uL (150-450); Protein,Urine Negative (Negative); RBC 3.38 m/uL (3.80-5.40); RBC,Urine 1 /hpf (0-5); RDW 13.9 % (11.5-15.5); Specific Gravity,Urine 1.009 (1.001-1.035); Squamous Epithelial Cell,Urine 1 /hpf (0-4); Urobilinogen,Urine <2.0 mg/dL (<2.0); WBC 6.7 k/uL (3.8-10.6); WBC,Urine 2 /hpf (0-5)
[2022-04-11 06:34] LABS: ALT 26 U/L (4-34); AST 43 U/L (14-36); African American GFR (CKD) >90 (>60 ml/min/1.73 sqM); Albumin 3.6 g/dL (3.5-5.0); Alkaline Phosphatase 55 U/L (38-126); Anion Gap 5 mmol/L; Blood Urea Nitrogen 9 mg/dL (7-17); C Reactive Protein <0.5 mg/dL (<1.0); Calcium 8.7 mg/dL (8.4-10.2); Carbon Dioxide 24 mmol/L (22-30); Chloride 106 mmol/L (98-107); Glucose 91 mg/dL (74-99); Non-African American GFR(CKD) >90 (>60 ml/min/1.73 sqM); Potassium 3.7 mmol/L (3.5-5.1); Sodium 135 mmol/L (137-145); Total Bilirubin 0.1 mg/dL (0.2-1.3); Total Protein 6.3 g/dL (6.3-8.2)
--- NOTE | 2022-04-11 06:39 | ED ---
General Adult HPI - History of Present Illness -: hour(s) Location: abdomen Radiation: non-radiation Quality: aching Consistency: constant Improves with: none Worsens with: none Associated Symptoms: denies other symptoms <Giovanni Patino - Last Filed: 04/11/22 06:41> - General Source: patient Mode of arrival: ambulatory Limitations: no limitations <Lonnie Maxwell - Last Filed: 04/11/22 09:05> - General Chief complaint: Abdominal Pain Stated complaint: Abd Pain Time Seen by Provider: 04/11/22 05:04 - History of Present Illness Initial comments: 's patient is 37-year-old woman presenting with periumbilical and lower abdominal pain which had come on with coarse tonight. The patient states that on Sunday she had a surgical performed. She had been doing well up until a few hours ago. The patient did have 2 day course of antibiotics following the procedure. She does not recall what medication she was given. Patient states that also tonight she had passed a little bit of blood. She states she had not had much bleeding following the procedure. No change in urination or bowel movements. (Giovanni Patino) Patient care signed out by previous shift physician, Dr. Patino. Briefly patient is a 37-year-old female presents to the emergency department for post operative umbilical pain. Patient had a dilatation and curettage performed at outside facility to abort a . Plan at sign out was to follow up with pending labs and imaging studies. Transvaginal ultrasound shows a 13 is thickening of the Prometrium of up to 1.6 cm. Unable to exclude retained hemorrhagic products given that they can being and heterogeneity. There is a great of a couple small uterine fibroids. Laboratory evaluation shows no leukocytosis. Metabolic panel was within acceptable limits. Urinalysis is negative. Patient refusing pelvic exam. Case discussed in detail with Dr. Spencer is on- call for RULING TECHNICIAN. At this point patient does not have any obvious signs of retained products of conception. She does not leukocytosis. She is afebrile she is well-appearing at the bedside. Dr. Spencer recommends outpatient follow-up in his office sometime this week. Patient is happy with that plan. Return precautions discussed. Patient is agreeable. (Lonnie Maxwell) - Related Data Home Medications Medication Instructions Recorded Confirmed Ibuprofen [Motrin] 800 mg PO Q6H PRN 04/11/22 04/11/22 Allergies Allergy/AdvReac Type Severity Reaction Status Date / Time No Known Allergies Allergy Verified 04/11/22 08:04 Review of Systems ROS Other: All systems not noted in ROS Statement are negative. Constitutional: Denies: fever, chills, weakness Respiratory: Denies: cough, dyspnea Cardiovascular: Denies: chest pain, palpitations, edema Gastrointestinal: Reports: abdominal pain. Denies: nausea, vomiting, diarrhea, constipation Genitourinary: Reports: discharge. Denies: dysuria, hematuria Musculoskeletal: Denies: back pain Skin: Denies: rash Neurological: Denies: headache, weakness, numbness <iGovanni Patino - Last Filed: 04/11/22 06:41> ROS Other: All systems not noted in ROS Statement are negative. <Lonnie Maxwell - Last Filed: 04/11/22 09:05> ROS Statement: Those systems with pertinent positive or pertinent negative responses have been documented in the HPI. 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 History of Any Multi-Drug Resistant Organisms: None Reported Past Surgical History: No Surgical Hx Reported Additional Past Surgical History / Comment(s): 04/07 Past Psychological History: No Psychological Hx Reported Smoking Status: Never smoker Past Alcohol Use History: None Reported Past Drug Use History: None Reported - Past Family History Father Family Medical History: Diabetes Mellitus <Lonnie Maxwell - Last Filed: 04/11/22 09:05> General Exam General appearance: alert, in no apparent distress Head exam: Present: atraumatic, normocephalic Eye exam: Present: normal appearance. Absent: scleral icterus, conjunctival injection Neck exam: Present: normal inspection Respiratory exam: Present: normal lung sounds bilaterally. Absent: respiratory distress, wheezes, rales, rhonchi, stridor, accessory muscle use Cardiovascular Exam: Present: regular rate, normal rhythm, normal heart sounds. Absent: systolic murmur, diastolic murmur, rubs, gallop GI/Abdominal exam: Present: soft, tenderness (Low abdominal tenderness without rebound or guarding). Absent: distended, guarding, rebound, rigid, mass, pulsatile mass, hernia Extremities exam: Present: normal inspection, normal capillary refill. Absent: pedal edema, calf tenderness Back exam: Present: normal inspection. Absent: CVA tenderness (R), CVA tendern ess (L) Neurological exam: Present: alert Skin exam: Present: warm, dry, intact, normal color. Absent: rash <Giovanni Patino - Last Filed: 04/11/22 06:41> Limitations: no limitations <Lonnie Maxwell - Last Filed: 04/11/22 09:05> Course Vital Signs 04/11/22 03:34 Temperature 97.9 F Pulse Rate 70 Respiratory 18 Rate Blood Pressure 140/93 O2 Sat by Pulse 98 Oximetry Medical Decision Making - Lab Data Result diagrams: 04/11/22 05:38 <Giovanni Patino - Last Filed: 04/11/22 06:41> - Lab Data Result diagrams: 04/11/22 05:38 04/11/22 05:38 <Lonnie Maxwell - Last Filed: 04/11/22 09:05> - Lab Data Lab Results 04/11/22 04/11/22 04/11/22 Range/Units 05:38 05:38 05:38 WBC 6.7 (3.8-10.6) k/uL RBC 3.38 L (3.80-5.40) m/uL Hgb 10.3 L (11.4-16.0) gm/dL Hct 30.5 L (34.0-46.0) % MCV 90.3 (80.0-100.0) fL MCH 30.6 (25.0-35.0) pg MCHC 33.9 (31.0-37.0) g/dL RDW 13.9 (11.5-15.5) % Plt Count 256 (150-450) k/uL MPV 7.3 Neutrophils % 57 % Lymphocytes % 31 % Monocytes % 6 % Eosinophils % 2 % Basophils % 0 % Neutrophils # 3.8 (1.3-7.7) k/uL Lymphocytes # 2.1 (1.0-4.8) k/uL Monocytes # 0.4 (0-1.0) k/uL Eosinophils # 0.2 (0-0.7) k/uL Basophils # 0.0 (0-0.2) k/uL Sodium 135 L (137-145) mmol/L Potassium 3.7 (3.5-5.1) mmol/L Chloride 106 (98-107) mmol/L Carbon Dioxide 24 (22-30) mmol/L Anion Gap 5 mmol/L BUN 9 (7-17) mg/dL Creatinine 0.59 (0.52-1.04) mg/dL Est GFR (CKD-EPI)AfAm >90 (>60 ml/min/1.73 sqM) Est GFR (CKD-EPI)NonAf >90 (>60 ml/min/1.73 sqM) Glucose 91 (74-99) mg/dL Calcium 8.7 (8.4-10.2) mg/dL Total Bilirubin 0.1 L (0.2-1.3) mg/dL AST 43 H (14-36) U/L ALT 26 (4-34) U/L Alkaline Phosphatase 55 (38-126) U/L C-Reactive Protein <0.5 (<1.0) mg/dL Total Protein 6.3 (6.3-8.2) g/dL Albumin 3.6 (3.5-5.0) g/dL Urine Color Light Yellow Urine Appearance Clear (Clear) Urine pH 6.5 (5.0-8.0) Ur Specific [place] 1.009 (1.001-1.035) Urine Protein Negative (Negative) Urine Glucose (UA) Negative (Negative) Urine Ketones Negative (Negative) Urine Blood Moderate H (Negative) Urine Nitrite Negative (Negative) Urine Bilirubin Negative (Negative) Urine Urobilinogen <2.0 (<2.0) mg/dL Ur Leukocyte Esterase Negative (Negative) Urine RBC 1 (0-5) /hpf Urine WBC 2 (0-5) /hpf Ur Squamous Epith Cells 1 (0-4) /hpf Urine Mucus Rare H (None) /hpf Disposition <Giovanni Patino - Last Filed: 04/11/22 06:41> Is patient prescribed a controlled substance at d/c from ED?: No <Lonnie Maxwell - Last Filed: 04/11/22 09:05> Clinical Impression: Post-operative pain Disposition: HOME SELF-CARE Condition: Fair Instructions (If sedation given, give patient instructions): Dilation and Curettage (DC) Referrals: Oseas Mcgregor MD [STAFF PHYSICIAN] - 1-2 days
--- NOTE | 2022-04-11 08:27 | US ---
EXAMINATION TYPE: US transvaginal plus Doppler DATE OF EXAM: 04/11/2022 COMPARISON: NONE CLINICAL HISTORY: 37-year-old female R/O retained products. 04/07/2022 , retained products. TECHNIQUE: Transvaginal (TV). Color Doppler spectral waveform analysis of the ovarian arteries and veins. FINDINGS: No EXAM MEASUREMENTS: Uterus: 12 x 5.7 x 9.3 cm Endometrial Stripe: 1.6 cm Right Ovary: 2.5 x 1.4 x 2.3 cm 1. Uterus: Anteverted. Round hypoechoic areas seen: 1.1 x .8 x 1.0 cm (posterior fundal submucosal ) and 1.2 x .8 x 1.0 cm (left lateral intramural). 2. Endometrium: Heterogeneous thickening up to 1.6 cm. No associated vascularity. 3. Right Ovary: wnl 4. Left Ovary: Obscured by overlying bowel gas Spectral, color and waveform doppler imaging shows good arterial and venous flow (superimposed wave forms) within the right ovary; there is no evidence for ovarian torsion. 5. Bilateral Adnexa: wnl 6. Posterior cul-de-sac: wnl IMPRESSION: 1. Heterogeneous thickening of the endometrium up to 1.6 cm. No associated vascularity. Unable to exc lude retained hemorrhagic products given the thickening and heterogeneity. Correlate with beta hCG va lues. 2. A couple small uterine fibroids. One of these measures 1.1 cm along the posterior fundus and has a submucosal component. 3. Unable to visualize the left ovary.
[2022-04-11 09:27] VITALS: BP 129/78; PULSE 74; TEMP 98.4
== END 2022-04-11 09:28 | disposition home or self-care (01) ==
LOC: EC 03:32
DX: G89.18 Other acute postprocedural pain (principal); R10.30 Lower abdominal pain, unspecified
CPT/HCPCS: 36415; 76830; 80053; 81001; 85025; 86140; 87040; 93976; 99284

== ENCOUNTER 2022-07-23 13:21 | Emergency (ER) | payer OTHER ==
[2022-07-23 13:27] VITALS: TEMP 98.2
[2022-07-23] MEDS ORDERED: SODIUM CHLORIDE 0.9% 1,000 ML IV STA (15:35)
[2022-07-23] MEDS ORDERED: KETOROLAC 15 MG/ML 1 ML VIAL IVP STA (16:10)
--- NOTE | 2022-07-23 16:16 | ED ---
Abdominal Pain HPI - General Chief Complaint: Abdominal Pain Stated Complaint: abd pain Time Seen by Provider: 07/23/22 15:09 Source: patient Mode of arrival: ambulatory Limitations: no limitations - History of Present Illness Initial Comments: Patient is a 37-year-old female presenting with chief complaint of left lower quadrant abdominal pain. Pain is been ongoing for the last 3 days. Patient also admits to vaginal discharge, states that is thick and white, resembles that of a yeast infection. Patient states that the pain started in the left lower quadrant, now is spreading to include the left side. No fever or chills. Patient was seen at urgent care today, she received negative urine hCG and her UA was WNL, they advised her to be evaluated in the ER. Patient states that since having a surgical in March, she has had repeated vaginal infections. Patient received STI testing a few weeks ago which was negative. She denies any vaginal bleeding, fever, chills, nausea, vomiting, chest pain, shortness of breath, diarrhea, hematochezia, melena, dysuria, hematuria, urgency, frequency, flank pain. - Related Data Home Medications Medication Instructions Recorded Confirmed Ibuprofen [Motrin] 800 mg PO Q6H PRN 04/11/22 04/11/22 Previous Rx's Medication Instructions Recorded Doxycycline [Vibramycin] 100 mg PO BID 14 Days #28 capsule 07/23/22 metroNIDAZOLE [Flagyl] 500 mg PO BID 14 Days #28 tab 07/23/22 Allergies Allergy/AdvReac Type Severity Reaction Status Date / Time No Known Allergies Allergy Verified 07/23/22 13:27 Review of Systems ROS Statement: Those systems with pertinent positive or pertinent negative responses have been documented in the HPI. ROS Other: All systems not noted in ROS Statement are negative. Past Medical History Past Medical History: No Reported History Additional Past Medical History / Comment(s): Past [employer] history: Chlamydia treated in 2001. History of Any Multi-Drug Resistant Organisms: None Reported Past Surgical History: No Surgical Hx Reported Additional Past Surgical History / Comment(s): 04/07 Past Psychological History: No Psychological Hx Reported Smoking Status: Never smoker Past Alcohol Use History: None Reported Past Drug Use History: None Reported - Past Family History Father Family Medical History: Diabetes Mellitus General Exam Limitations: no limitations General appearance: alert, in no apparent distress Head exam: Present: atraumatic, normocephalic, normal inspection Eye exam: Present: normal appearance, EOMI. Absent: scleral icterus, periorbital swelling Neck exam: Present: normal inspection Respiratory exam: Present: normal lung sounds bilaterally. Absent: respiratory distress, wheezes, rales, rhonchi, stridor Cardiovascular Exam: Present: regular rate, normal rhythm, normal heart sounds. Absent: systolic murmur, diastolic murmur, rubs, gallop, clicks GI/Abdominal exam: Present: soft, tenderness (Mild left lower quadrant tenderness), normal bowel sounds. Absent: distended, guarding, rebound, rigid External exam: Present: normal external exam Speculum exam: Present: vaginal discharge (Copious thin white discharge). Absent: vaginal bleeding By manual exam: Present: cervical motion tenderness Neurological exam: Present: alert, oriented X3, CN II-XII intact Psychiatric exam: Present: normal affect, normal mood Skin exam: Present: warm, dry, intact, normal color. Absent: rash Course Vital Signs 07/23/22 07/23/22 13:23 18:11 Temperature 98.2 F Pulse Rate 79 78 Respiratory 18 16 Rate Blood Pressure 138/82 130/84 O2 Sat by Pulse 98 100 Oximetry Medical Decision Making - Medical Decision Making Patient is a 37-year-old female presenting with chief complaint of left lower quadrant pain. Patient also admits to copious white vaginal discharge. On examination there is some mild left lower quadrant tenderness. Transvaginal ultrasound shows right-sided ovarian cysts. Urine hCG is negative, UA shows 1+ ketones. CT shows small bilateral ovarian cysts, otherwise no acute process. No leukocytosis. Sodium 136, otherwise CMP is unremarkable. Normal amylase and lipase. On pelvic exam there is some cervical motion tenderness, there is copious white thin discharge seated in the vaginal vault. Genital culture and STI testing percentile. Patient will be treated outpatient for PID. Patient is given 500 mg Rocephin IM injection here. 14 day supply of metronidazole and doxycycline and sent to pharmacy. Follow-up with [facility]. Report back to ER with any new or worsening symptoms. Discussed return parameters answered all questions. Patient conveyed verbal understanding and agreed to the plan. I discussed this case with my attending Dr. Rolon. - Lab Data Result diagrams: 07/23/22 15:53 07/23/22 15:53 Lab Results 07/23/22 07/23/2207/23/22 Range/Units 15:53 15:53 15:53 WBC 6.8 (3.8-10.6) k/uL RBC 4.61 (3.80-5.40) m/uL Hgb 13.0 (11.4-16.0) gm/dL Hct 40.7 (34.0-46.0) % MCV 88.4 (80.0-100.0) fL MCH 28.3 (25.0-35.0) pg MCHC 32.0 (31.0-37.0) g/dL RDW 13.0 (11.5-15.5) % Plt Count 298 (150-450) k/uL MPV 7.8 Neutrophils % 59 % Lymphocytes % 31 % Monocytes % 7 % Eosinophils % 1 % Basophils % 1 % Neutrophils # 4.0 (1.3-7.7) k/uL Lymphocytes # 2.1 (1.0-4.8) k/uL Monocytes # 0.4 (0-1.0) k/uL Eosinophils # 0.1 (0-0.7) k/uL Basophils # 0.1 (0-0.2) k/uL PT (9.0-12.0) sec INR (<1.2) APTT (22.0-30.0) sec Sodium 136 L (137-145) mmol/L Potassium 4.0 (3.5-5.1) mmol/L Chloride 101 (98-107) mmol/L Carbon Dioxide 23 (22-30) mmol/L Anion Gap 12 mmol/L BUN 9 (7-17) mg/dL Creatinine 0.62 (0.52-1.04) mg/dL Est GFR (CKD-EPI)AfAm >90 (>60 ml/min/1.73 sqM) Est GFR (CKD-EPI)NonAf >90 (>60 ml/min/1.73 sqM) Glucose 89 (74-99) mg/dL Plasma Lactic Acid Ryne 0.8 (0.7-2.0) mmol/L Calcium 9.4 (8.4-10.2) mg/dL Total Bilirubin 0.6 (0.2-1.3) mg/dL AST 25 (14-36) U/L ALT 14 (4-34) U/L Alkaline Phosphatase 71 (38-126) U/L Total Protein 8.1 (6.3-8.2) g/dL Albumin 4.8 (3.5-5.0) g/dL Amylase 94 (30-110) U/L Lipase 193 (23-300) U/L Urine Color Urine Appearance (Clear) Urine pH (5.0-8.0) Ur Specific Vernon (1.001-1.035) Urine Protein (Negative) Urine Glucose (UA) (Negative) Urine Ketones (Negative) Urine Blood (Negative) Urine Nitrite (Negative) Urine Bilirubin (Negative) Urine Urobilinogen (<2.0) mg/dL Ur Leukocyte Esterase (Negative) Urine HCG, Qual (Not Detectd) Trichomonas Ag (Rapid) (Negative) 07/23/22 07/23/22 07/23/22 Range/Units 15:53 15:53 15:53 WBC (3.8-10.6) k/uL RBC (3.80-5.40) m/uL Hgb (11.4-16.0) gm/dL Hct (34.0-46.0) % MCV (80.0-100.0) fL MCH (25.0-35.0) pg MCHC (31.0-37.0) g/dL RDW (11.5-15.5) % Plt Count (150-450) k/uL MPV Neutrophils % % Lymphocytes % % Monocytes % % Eosinophils % % Basophils % % Neutrophils # (1.3-7.7) k/uL Lymphocytes # (1.0-4.8) k/uL Monocytes # (0-1.0) k/uL Eosinophils # (0-0.7) k/uL Basophils # (0-0.2) k/uL PT 10.3 (9.0-12.0) sec INR 0.9 (<1.2) APTT 24.3 (22.0-30.0) sec Sodium (137-145) mmol/L Potassium (3.5-5.1) mmol/L Chloride (98-107) mmol/L Carbon Dioxide (22-30) mmol/L Anion Gap mmol/L BUN (7-17) mg/dL Creatinine (0.52-1.04) mg/dL Est GFR (CKD-EPI)AfAm (>60 ml/min/1.73 sqM) Est GFR (CKD-EPI)NonAf (>60 ml/min/1.73 sqM) Glucose (74-99) mg/dL Plasma Lactic Acid Ryne (0.7-2.0) mmol/L Calcium (8.4-10.2) mg/dL Total Bilirubin (0.2-1.3) mg/dL AST (14-36) U/L ALT (4-34) U/L Alkaline Phosphatase (38-126) U/L Total Protein (6.3-8.2) g/dL Albumin (3.5-5.0) g/dL Amylase (30-110) U/L Lipase (23-300) U/L Urine Color Light Yellow Urine Appearance Clear (Clear) Urine pH 6.5 (5.0-8.0) Ur Specific Vernon 1.009 (1.001-1.035) Urine Protein Negative (Negative) Urine Glucose (UA) Negative (Negative) Urine Ketones 1+ H (Negative) Urine Blood Negative (Negative) Urine Nitrite Negative (Negative) Urine Bilirubin Negative (Negative) Urine Urobilinogen <2.0 (<2.0) mg/dL Ur Leukocyte Esterase Negative (Negative) Urine HCG, Qual Not Detected (Not Detectd) Trichomonas Ag (Rapid) (Negative) 07/23/22 Range/Units 19:25 WBC (3.8-10.6) k/uL RBC (3.80-5.40) m/uL Hgb (11.4-16.0) gm/dL Hct (34.0-46.0) % MCV (80.0-100.0) fL MCH (25.0-35.0) pg MCHC (31.0-37.0) g/dL RDW (11.5-15.5) % Plt Count (150-450) k/uL MPV Neutrophils % % Lymphocytes % % Monocytes % % Eosinophils % % Basophils % % Neutrophils # (1.3-7.7) k/uL Lymphocytes # (1.0-4.8) k/uL Monocytes # (0-1.0) k/uL Eosinophils # (0-0.7) k/uL Basophils # (0-0.2) k/uL PT (9.0-12.0) sec INR (<1.2) APTT (22.0-30.0) sec Sodium (137-145) mmol/L Potassium (3.5-5.1) mmol/L Chloride (98-107) mmol/L Carbon Dioxide (22-30) mmol/L Anion Gap mmol/L BUN (7-17) mg/dL Creatinine (0.52-1.04) mg/dL Est GFR (CKD-EPI)AfAm (>60 ml/min/1.73 sqM) Est GFR (CKD-EPI)NonAf (>60 ml/min/1.73 sqM) Glucose (74-99) mg/dL Plasma Lactic Acid Ryne (0.7-2.0) mmol/L Calcium (8.4-10.2) mg/dL Total Bilirubin (0.2-1.3) mg/dL AST (14-36) U/L ALT (4-34) U/L Alkaline Phosphatase (38-126) U/L Total Protein (6.3-8.2) g/dL Albumin (3.5-5.0) g/dL Amylase (30-110) U/L Lipase (23-300) U/L Urine Color Urine Appearance (Clear) Urine pH (5.0-8.0) Ur Specific Vernon (1.001-1.035) Urine Protein (Negative) Urine Glucose (UA) (Negative) Urine Ketones (Negative) Urine Blood (Negative) Urine Nitrite (Negative) Urine Bilirubin (Negative) Urine Urobilinogen (<2.0) mg/dL Ur Leukocyte Esterase (Negative) Urine HCG, Qual (Not Detectd) Trichomonas Ag (Rapid) Negative (Negative) Disposition Clinical Impression: Pelvic pain Disposition: HOME SELF-CARE Condition: Good Instructions (If sedation given, give patient instructions): Pelvic Inflammatory Disease (ED) Additional Instructions: Follow-up with PCP and [employer]. Take medication as prescribed. Report back to ER for any new or worsening symptoms. Take Motrin and Tylenol as needed for pain control. Prescriptions: metroNIDAZOLE [Flagyl] 500 mg PO BID 14 Days #28 tab Doxycycline [Vibramycin] 100 mg PO BID 14 Days #28 capsule Is patient prescribed a controlled substance at d/c from ED?: No Referrals: None,Stated [Primary Care Provider] - 1-2 days Regine Lopez MD [STAFF PHYSICIAN] - 1-2 days Time of Disposition: 19:25
[2022-07-23 16:23] LABS: Appearance,Urine Clear (Clear); Basophils # (A) 0.1 k/uL (0-0.2); Basophils % (A) 1 %; Bilirubin,Urine Negative (Negative); Blood,Urine Negative (Negative); Color,Urine Light Yellow; Eosinophils # (A) 0.1 k/uL (0-0.7); Eosinophils % (A) 1 %; Glucose,Urine (UA) Negative (Negative); HCT 40.7 % (34.0-46.0); Ketones,Urine 1+ (Negative); Leukocyte Esterase,Urine Negative (Negative); Lymphocytes # (A) 2.1 k/uL (1.0-4.8); Lymphocytes % (A) 31 %; MCH 28.3 pg (25.0-35.0); MCV 88.4 fL (80.0-100.0); Mean Platelet Volume 7.8; Monocytes # (A) 0.4 k/uL (0-1.0); Monocytes % (A) 7 %; Neutrophils % (A) 59 %; Nitrite,Urine Negative (Negative); PH, Urine 6.5 (5.0-8.0); Platelet Count 298 k/uL (150-450); Protein,Urine Negative (Negative); RBC 4.61 m/uL (3.80-5.40); Specific Gravity,Urine 1.009 (1.001-1.035); Urobilinogen,Urine <2.0 mg/dL (<2.0); WBC 6.8 k/uL (3.8-10.6)
[2022-07-23 16:32] LABS: INR 0.9 (<1.2); Partial Thromboplastin Time 24.3 sec (22.0-30.0); Prothrombin Time 10.3 sec (9.0-12.0)
[2022-07-23 16:49] LABS: ALT 14 U/L (4-34); AST 25 U/L (14-36); African American GFR (CKD) >90 (>60 ml/min/1.73 sqM); Albumin 4.8 g/dL (3.5-5.0); Alkaline Phosphatase 71 U/L (38-126); Amylase 94 U/L (30-110); Anion Gap 12 mmol/L; Blood Urea Nitrogen 9 mg/dL (7-17); Calcium 9.4 mg/dL (8.4-10.2); Carbon Dioxide 23 mmol/L (22-30); Chloride 101 mmol/L (98-107); Glucose 89 mg/dL (74-99); Lipase 193 U/L (23-300); Non-African American GFR(CKD) >90 (>60 ml/min/1.73 sqM); Sodium 136 mmol/L (137-145); Total Bilirubin 0.6 mg/dL (0.2-1.3); Total Protein 8.1 g/dL (6.3-8.2)
--- NOTE | 2022-07-23 16:53 | US ---
EXAMINATION TYPE: US transvaginal DATE OF EXAM: 07/23/2022 COMPARISON: US CLINICAL HISTORY: pelvic pain, L sided. TECHNIQUE: Transvaginal (TV). Transabdominal sonographic images of the pelvis were acquired. Trans vaginal sonographic images were medically necessary to better assess the following anatomy: Date of LMP: 07-09-22 EXAM MEASUREMENTS: Uterus: 9.9 x 4.3 x 5.3 cm Endometrial Stripe: 1.3 cm Right Ovary: 3.9 x 2.6 x 2.3 cm Left Ovary: 2.8 x 2.3 x 2.8 cm 1. Uterus: Anteverted, hypoechoic area adjacent to endometrium measuring 0.5 x 0.5 x 0.7cm 2. Endometrium: wnl 3. Right Ovary: 2 cystic structures largest measuring 2.2 x 1.6 x 1.6cm 4. Left Ovary: wnl Spectral, color and waveform doppler imaging shows good arterial and venous flow within the ovaries ; there is no evidence for ovarian torsion. 5. Bilateral Adnexa: wnl 6. Posterior cul-de-sac: wnl IMPRESSION: There are simple right ovarian cysts. No solid adnexal mass. No evidence of ovarian torsion. Normal u terus.
[2022-07-23] MEDS ORDERED: SODIUM CHLORIDE 0.9% 1,000 ML IV ONE (17:31)
[2022-07-23] MEDS ORDERED: MORPHINE SULFATE 4 MG/ML SYRINGE IVP STA (17:49)
[2022-07-23 18:14] VITALS: BP 130/84; PULSE 78; RESP 16
--- NOTE | 2022-07-23 18:17 | CT ---
EXAMINATION TYPE: CT abdomen pelvis w con DATE OF EXAM: 07/23/2022 COMPARISON: None HISTORY: left sided abdominal pain CT DLP: 563.2 mGycm Automated exposure control for dose reduction was used. CONTRAST: Performed with IV Contrast, patient injected with 100 mL of Isovue 300. Images obtained from the diaphragm to the floor of the pelvis with IV contrast. Lung bases are clear. No pleural effusion. Heart size is normal. No pericardial effusion. Liver spleen and stomach pancreas gallbladder appear intact. The bile ducts are not dilated. There is no adrenal mass. Kidneys show satisfactory contrast opacification. There is no hydronephrosi s. Ureters are not dilated. No retroperitoneal adenopathy. Uterus is anteverted. No inguinal hernia. No free fluid in the pelvis. No pelvic mass. The lumbar vertebrae have normal spacing and alignment. Posterior elements are intact. No compression fracture. Bony pelvis is intact. The hip joints are intact. Sacroiliac joints appear normal. There are small cysts on both ovaries. Appendix not seen. No sign of thickened appendix. There is no mesenteric edema. No ascites or free air. No sign of a bowel obstruction. IMPRESSION: Small bilateral ovarian cysts. Appendix not seen. Largest cyst is on the right side and measures 1.6 cm.
[2022-07-23] MEDS ORDERED: cefTRIAXone 250 MG VIAL IM STA (19:14)
[2022-07-23] MEDS ORDERED: metroNIDAZOLE 500 MG TAB PO STA (19:25)
[2022-07-23] MEDS ORDERED: DOXYCYCLINE 100 MG CAP PO STA (19:25)
== END 2022-07-23 19:41 | disposition home or self-care (01) ==
LOC: EC 13:21
DX: N83.202 Unspecified ovarian cyst, left side (principal); N83.201 Unspecified ovarian cyst, right side
CPT/HCPCS: 36415; 80053; 82150; 83605; 83690; 85025; 85610; 85730; 81003; 81025; 87808; 87070; 93975; 76830; 74177; 99284; 96374; 96375; 96361; 96372; J2270; J0696; J1885; Q9967

== ENCOUNTER 2024-12-08 21:36 | Emergency (ER) | payer OTHER ==
[2024-12-08 21:43] VITALS: TEMP 97.8
--- NOTE | 2024-12-08 22:23 | ED ---
General Adult HPI - General Source: patient, RN notes reviewed Mode of arrival: ambulatory Limitations: no limitations <Jaqui Bernal - Last Filed: 12/08/24 23:54> <Elodia Sanz - Last Filed: 12/09/24 02:39> - General Chief complaint: Abdominal Pain Stated complaint: 15 weeks preg,back/abd pain Time Seen by Provider: 12/08/24 21:55 - History of Present Illness Initial comments: 39-year-old female presents to the emergency department for evaluation of right flank pain. Patient states that started around 1 and half hours ago. Patient reports that the pain now feels like it is radiating to her abdomen bilaterally. She admits to urinary frequency. Denies any burning with urination. Patient reports that she is 15 weeks . She states that she was at [facility] prior to coming here and was told that she had blood in her urine. (Jaqui Bernal) - Related Data Home Medications Medication Instructions Recorded Confirmed Ibuprofen [Motrin] 800 mg PO Q6H PRN 04/11/22 04/11/22 Previous Rx's Medication Instructions Recorded Doxycycline [Vibramycin] 100 mg PO BID 14 Days #28 capsule 07/23/22 metroNIDAZOLE [Flagyl] 500 mg PO BID 14 Days #28 tab 07/23/22 Cefpodoxime Proxetil [Vantin] 200 mg PO Q12HR 7 Days #14 tab 12/09/24 Allergies Allergy/AdvReac Type Severity Reaction Status Date / Time No Known Allergies Allergy Verified 12/08/24 21:42 Review of Systems ROS Other: All systems not noted in ROS Statement are negative. <Jaqui Bernal - Last Filed: 12/08/24 23:54> ROS Other: All systems not noted in ROS Statement are negative. <Elodia Sanz - Last Filed: 12/09/24 02:39> ROS Statement: Those systems with pertinent positive or pertinent negative responses have been documented in the HPI. 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 History of Any Multi-Drug Resistant Organisms: None Reported Past Surgical History: No Surgical Hx Reported Additional Past Surgical History / Comment(s): 04/07 Past Psychological History: No Psychological Hx Reported Smoking Status: Never smoker Past Alcohol Use History: None Reported Past Drug Use History: None Reported - Past Family History Father Family Medical History: Diabetes Mellitus <Jaqui Bernal - Last Filed: 12/08/24 23:54> General Exam Limitations: no limitations General appearance: alert, in no apparent distress Head exam: Present: atraumatic, normocephalic, normal inspection Eye exam: Present: normal appearance, PERRL, EOMI. Absent: scleral icterus, conjunctival injection, periorbital swelling Respiratory exam: Present: normal lung sounds bilaterally. Absent: respiratory distress, wheezes, rales, rhonchi, stridor Cardiovascular Exam: Present: regular rate, normal rhythm, normal heart sounds. Absent: systolic murmur, diastolic murmur, rubs, gallop, clicks GI/Abdominal exam: Present: soft, normal bowel sounds. Absent: distended, tenderness, guarding, rebound, rigid Extremities exam: Present: normal inspection, full ROM, normal capillary refill. Absent: tenderness, pedal edema, joint swelling, calf tenderness Back exam: Present: normal inspection. Absent: CVA tenderness (R), CVA tenderness (L) Neurological exam: Present: alert, oriented X3 Psychiatric exam: Present: normal affect, normal mood Skin exam: Present: warm, dry, intact, normal color. Absent: rash <Jaqui Bernal - Last Filed: 12/08/24 23:54> Course Vital Signs 12/08/24 21:37 Temperature 97.8 F Pulse Rate 91 Respiratory 18 Rate Blood Pressure 106/73 O2 Sat by Pulse 97 Oximetry Medical Decision Making - Lab Data Result diagrams: 12/08/24 23:12 12/08/24 23:12 <Jaqui Bernal - Last Filed: 12/08/24 23:54> - Lab Data Result diagrams: 12/08/24 23:12 12/08/24 23:12 - Radiology Data Radiology results: report reviewed, image reviewed <Elodia Sanz - Last Filed: 12/09/24 02:39> - Medical Decision Making Was pt. sent in by a medical professional or institution (, PA, OTOLARYNGOLOGY NURSE, urgent care, hospital, or [place] health care facility...) When possible be specific @ -[No] Did you speak to anyone other than the patient for history (EMS, parent, family, police, friend...)? What history was obtained from this source @ -[No] Did you review nursing and triage notes (agree or disagree)? Why? @ -[I reviewed and agree with nursing and triage notes] Were old charts reviewed (outside hosp., previous admission, EMS record, old EKG, old radiological studies, urgent care reports/EKG's, [place] health care facility records)? Report findings @ -[No old charts were reviewed] Differential Diagnosis (chest pain, altered mental status, abdominal pain women, abdominal pain men, vaginal bleeding, weakness, fever, dyspnea, syncope, headache, dizziness, GI bleed, back pain, seizure, CVA, palpatations, mental health, musculoskeletal)? @ -[Differential Back Pain: Strain, zoster, cauda equina syndrome, epidural abscess, vertebral osteomyelit is, discitis, fracture, subluxation, disc herniation, DJD, spinal stenosis, dissection, AAA, pancreatitis, peptic ulcer disease, pyelonephritis, kidney stone, this is not meant to be an all-inclusive list. ] EKG interpreted by me (3pts min.). @ -None X-rays interpreted by me (1pt min.). @ -[None done] CT interpreted by me (1pt min.). @ -[None done] U/S interpreted by me (1pt. min.). @ -[Send of the kidneys and bladder obtained and ultrasound obtained pending results] What testing was considered but not performed or refused? (CT, X-rays, U/S, labs)? Why? @ -[None] What meds were considered but not given or refused? Why? @ -[None] Did you discuss the management of the patient with other professionals (professionals i.e. , PA, OTOLARYNGOLOGY NURSE, lab, RT, psych nurse, licensed social worker, brake lining finisher asbestos, te acher, [place] police officer, caseworker)? Give summary @ -[No] Was smoking cessation discussed for >3mins.? @ -[No] Was critical care preformed (if so, how long)? @ -[No] Were there social determinants of health that impacted care today? How? (Homelessness, low income, unemployed, alcoholism, drug addiction, transportation, low edu. Level, literacy, decrease access to med. care, custodial, rehab)? @ -[No] Was there de-escalation of care discussed even if they declined (Discuss DNR or withdrawal of care, Hospice)? DNR status @ -[No] What co-morbidities impacted this encounter? (DM, HTN, Smoking, COPD, CAD, Cancer, CVA, ARF, Chemo, Hep., AIDS, mental health diagnosis, sleep apnea, morbid obesity)? @ -[None] Was patient admitted / discharged? Hospital course, mention meds given and route, prescriptions, significant lab abnormalities, going to OR and other pertinent info. @ -[Patient presented the emergency department for evaluation of right flank pain and abdominal pain. Laboratory studies obtained revealing no significant leukocytosis, hemoglobin 11.1; CMP on actionable at this time, creatinine 0.61. UA, ultrasound, kidney and bladder ultrasound pending at shift completion. Patient signed out to Elodia Sanz PA-C] Undiagnosed new problem with uncertain prognosis? @ -[No] Drug Therapy requiring intensive monitoring for toxicity (Heparin, Nitro, Insu mariann, Cardizem)? @ -[No] Were any procedures done? @ -[No] Diagnosis/symptom? @ -[default] Acute, or Chronic, or Acute on Chronic? @ -[default] Uncomplicated (without systemic symptoms) or Complicated (systemic symptoms)? @ -[default] Side effects of treatment? @ -[No] Exacerbation, Progression, or Severe Exacerbation? @ -[No] Poses a threat to life or bodily function? How? (Chest pain, [place], [place], pneumonia, PE, COPD, DKA, ARF, appy, cholecystitis, CVA, Diverticulitis, Homicidal, Suicidal, threat to staff... and all critical care pts) @ -[No] (Jaqui Bernal) Case signed out to me by Jaqui Bernal PA-C, at shift completion pending UA results and imaging. Urinalysis consistent with infection based on the many bacteria. A large amount of blood was present as well. Urine sent for culture. ultrasound demonstrates a single intrauterine with a heart rate of 147 bpm. Ultrasound of the abdomen/bladder obtained revealing no evidence of hydronephrosis or a calculus. Advised the patient that at this point workup does not identify any signs of a ureteral calculus that would be contributing to her symptoms. Urine does appear to be infected. Advised that we will treat her for infection based on these findings. 2 g of ceftriaxone administered in the emergency department prior to discharge. Given that she was on antibiotics for a UTI about a 1.5 months ago, prescription for Vantin was provided. We discussed the risks with UTIs in , especially at this stage and she was given very strict return parameters and advised to have close follow-up with her GREEN CHAIN WORKER. Advised Tylenol as needed for pain relief. Patient discharged home in stable condition. Case discussed with ED attending Dr. Hughes. Return precautions reviewed in depth, the patient is instructed to return to the emergency department with any new, worsening, or concerning symptoms. Patient verbalized understanding. (Elodia Sanz) - Lab Data Lab Results 12/08/24 12/08/24 12/08/24 Range/Units 23:12 23:12 23:12 WBC 9.6 (3.8-10.6) k/uL RBC 3.65 L (3.80-5.40) m/uL Hgb 11.1 L (11.4-16.0) gm/dL Hct 33.1 L (34.0-46.0) % MCV 90.7 (80.0-100.0) fL MCH 30.4 (25.0-35.0) pg MCHC 33.6 (31.0-37.0) g/dL RDW 13.4 (11.5-15.5) % Plt Count 332 (150-450) k/uL MPV 7.0 Neutrophils % 68 % Lymphocytes % 20 % Monocytes % 8 % Eosinophils % 2 % Basophils % 0 % Neutrophils # 6.5 (1.3-7.7) k/uL Lymphocytes # 1.9 (1.0-4.8) k/uL Monocytes # 0.7 (0-1.0) k/uL Eosinophils # 0.2 (0-0.7) k/uL Basophils # 0.0 (0-0.2) k/uL Sodium 135 L (137-145) mmol/L Potassium 3.9 (3.5-5.1) mmol/L Chloride 104 (98-107) mmol/L Carbon Dioxide 27 (22-30) mmol/L Anion Gap 4 mmol/L BUN 10 (7-17) mg/dL Creatinine 0.61 (0.52-1.04) mg/dL Est GFR (CKD-EPI)AfAm >90 (>60 ml/min/1.73 sqM) Est GFR (CKD-EPI)NonAf >90 (>60 ml/min/1.73 sqM) Glucose 93 (74-99) mg/dL Calcium 8.9 (8.4-10.2) mg/dL Total Bilirubin 0.2 (0.2-1.3) mg/dL AST 17 (14-36) U/L ALT 13 (4-34) U/L Alkaline Phosphatase 55 (38-126) U/L Total Protein 6.2 L (6.3-8.2) g/dL Albumin 3.4 L (3.5-5.0) g/dL Urine Color Yellow Urine Appearance Cloudy H (Clear) Urine pH 8.0 (5.0-8.0) Ur Specific [place] 1.025 (1.001-1.035) Urine Protein Trace H (Negative) Urine Glucose (UA) Negative (Negative) Urine Ketones Negative (Negative) Urine Blood Moderate H (Negative) Urine Nitrite Negative (Negative) Urine Bilirubin Negative (Negative) Urine Urobilinogen 2.0 (<2.0) mg/dL Ur Leukocyte Esterase Negative (Negative) Urine RBC 96 H (0-5) /hpf Urine WBC 7 H (0-5) /hpf Ur Squamous Epith Cells 5 H (0-4) /hpf Amorphous Sediment Moderate H (None) /hpf Urine Bacteria Many H (None) /hpf Urine Mucus Few H (None) /hpf Disposition <Jaqui Bernal - Last Filed: 12/08/24 23:54> Is patient prescribed a controlled substance at d/c from ED?: No Time of Disposition: 02:33 <Elodia Sanz - Last Filed: 12/09/24 02:39> Clinical Impression: UTI (urinary tract infection), Flank pain Disposition: HOME SELF-CARE Instructions (If sedation given, give patient instructions): Flank Pain (ED), Urinary Tract Infection in (ED) Additional Instructions: Return to the emergency department with any new, worsening, or concerning symptoms. Take the antibiotic as prescribed for 7 days. Take Tylenol as needed for pain relief. Follow-up with your GREEN CHAIN WORKER and primary care provider. Prescriptions: Cefpodoxime Proxetil [Vantin] 200 mg PO Q12HR 7 Days #14 tab Referrals: None,Stated [Primary Care Provider] - 1-2 days
[2024-12-08 23:31] LABS: Basophils % (A) 0 %; Eosinophils # (A) 0.2 k/uL (0-0.7); Eosinophils % (A) 2 %; HCT 33.1 % (34.0-46.0); HGB 11.1 gm/dL (11.4-16.0); Lymphocytes # (A) 1.9 k/uL (1.0-4.8); Lymphocytes % (A) 20 %; MCH 30.4 pg (25.0-35.0); MCHC 33.6 g/dL (31.0-37.0); MCV 90.7 fL (80.0-100.0); Monocytes # (A) 0.7 k/uL (0-1.0); Monocytes % (A) 8 %; Neutrophils # (A) 6.5 k/uL (1.3-7.7); Neutrophils % (A) 68 %; Platelet Count 332 k/uL (150-450); RBC 3.65 m/uL (3.80-5.40); RDW 13.4 % (11.5-15.5); WBC 9.6 k/uL (3.8-10.6)
[2024-12-08 23:41] LABS: ALT 13 U/L (4-34); AST 17 U/L (14-36); African American GFR (CKD) >90 (>60 ml/min/1.73 sqM); Albumin 3.4 g/dL (3.5-5.0); Alkaline Phosphatase 55 U/L (38-126); Anion Gap 4 mmol/L; Blood Urea Nitrogen 10 mg/dL (7-17); Calcium 8.9 mg/dL (8.4-10.2); Carbon Dioxide 27 mmol/L (22-30); Chloride 104 mmol/L (98-107); Glucose 93 mg/dL (74-99); Non-African American GFR(CKD) >90 (>60 ml/min/1.73 sqM); Potassium 3.9 mmol/L (3.5-5.1); Sodium 135 mmol/L (137-145); Total Bilirubin 0.2 mg/dL (0.2-1.3); Total Protein 6.2 g/dL (6.3-8.2)
[2024-12-09 00:43] LABS: Amorphous Sediment,Urine Moderate /hpf; Appearance,Urine Cloudy (Clear); Bacteria,Urine Many /hpf; Bilirubin,Urine Negative (Negative); Blood,Urine Moderate (Negative); Color,Urine Yellow; Glucose,Urine (UA) Negative (Negative); Ketones,Urine Negative (Negative); Leukocyte Esterase,Urine Negative (Negative); Mucus,Urine Few /hpf; Nitrite,Urine Negative (Negative); Protein,Urine Trace (Negative); RBC,Urine 96 /hpf (0-5); Specific Gravity,Urine 1.025 (1.001-1.035); Squamous Epithelial Cell,Urine 5 /hpf (0-4); WBC,Urine 7 /hpf (0-5)
--- NOTE | 2024-12-09 01:17 | US ---
EXAM: US Second or Third Trimester , Transabdominal CLINICAL HISTORY: ITS.REASON US Reason: pain 15 wks TECHNIQUE: Real-time transabdominal obstetrical ultrasound of the maternal pelvis and a second or third trimester with image documentation. COMPARISON: None FINDINGS: Single live intrauterine gestation with transverse presentation. The placenta is posterior with evidence of previa. The amniotic fluid index is within normal limits, measuring 7.90 cm. The cervix is long and closed, measuring 3.7 cm. Patient's LMP is reported as 08/16/2024 which corresponds to gestational age of 16 weeks 2 days giving LOGAN of 05/23/2025. BPD 3.51 cm, 16 weeks 6 days HC 13.30 cm, 16 weeks 6 days AC 11.75 cm, 17 weeks 4 days FL 1.90 cm, 15 weeks 5 days By this ultrasound, estimated gestational age is 16 weeks 6 days, corresponding to a sonographic LOGAN of 05/19/2025. Estimated weight is 163 g +/-24 g which is at the 65 percentile. HC/AC ratio is 1.13 (normal range for this fetus is 1.05-1.39). FHR is 147 bpm. IMPRESSION: 1. Single intrauterine with heart rate of 147 bpm. 2. Posterior placenta with previa. Cervix is long and closed.
--- NOTE | 2024-12-09 02:21 | US ---
EXAM: US Retroperitoneal Complete, Renal CLINICAL HISTORY: ITS.REASON US Reason: pain, abd, rt flank TECHNIQUE: Real-time complete ultrasound of the retroperitoneum with image documentation. COMPARISON: None FINDINGS: Right kidney: Unremarkable. Right kidney measures 9.8 cm in length. No hydronephrosis or stone. Left kidney: Unremarkable. Left kidney measures 10.7 cm in length. No hydronephrosis or stone. Bladder: Visualized portions of the bladder are grossly unremarkable. Right ureteral jet noted. IMPRESSION: No hydronephrosis or stone.
[2024-12-09] MEDS: cefTRIAXone 1,000 MG VIAL (IM USE) IM STA (02:34)
[2024-12-09] MEDS: cefTRIAXone IN SWFI 1,000 MG/10 ML SYRINGE IVP STA ×2 (02:41→02:42)
[2024-12-09 02:49] VITALS: BP 119/82; PULSE 81; RESP 16
== END 2024-12-09 02:46 | disposition home or self-care (01) ==
LOC: EC 21:36
DX: O23.42 Unspecified infection of urinary tract in pregnancy, second trimester (principal); O26.892 Other specified pregnancy related conditions, second trimester; N39.0 Urinary tract infection, site not specified; Z3A.15 15 weeks gestation of pregnancy
CPT/HCPCS: 36415; 76770; 76805; 80053; 81001; 85025; 87086; 96374; 96375; 99284

== ENCOUNTER 2025-02-07 22:43 | Outpatient (CLI) | payer OTHER ==
[2025-02-07 23:29] VITALS: BP 115/72; PULSE 89; RESP 16; TEMP 98.2
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
== END 2025-02-07 23:19 | disposition home or self-care (01) ==
LOC: FBPOP 22:43
PROVIDERS: ATTEND Obstetrics & Gynecology Obstetrics
DX: O26.893 Other specified pregnancy related conditions, third trimester (principal); G89.11 Acute pain due to trauma; Z87.891 Personal history of nicotine dependence; Z3A.25 25 weeks gestation of pregnancy
CPT/HCPCS: 59025; G0463; 99213

== ENCOUNTER 2025-05-01 10:00 | Inpatient (IN) | payer OTHER ==
[2025-05-01] MEDS: LACTATED RINGERS 1,000 ML IV ONE (10:25)
[2025-05-01] MEDS ORDERED: CARBOPROST TROMETHAMINE 250 MCG/ML 1 ML AMP IM PRN (10:29)
[2025-05-01] MEDS ORDERED: miSOPROStoL 200 MCG TAB PO PRN (10:29)
[2025-05-01] MEDS ORDERED: TRANEXAMIC 1,000 MG/100ML-NACL 1,000 MG in EMPTY BAG 1 BAG IV PRN (10:29)
[2025-05-01] MEDS ORDERED: METHYLERGONOVINE 0.2 MG/ML 1 ML AMP IM PRN (10:29)
[2025-05-01] MEDS ORDERED: OXYTOCIN 10 UNIT/ML 1 ML VIAL IM PRN (10:29)
[2025-05-01 10:41] LABS: Basophils # (A) 0.06 10*3/uL (0.00-0.10); Basophils % (A) 0.7 %; Eosinophils % (A) 1.1 %; HCT 27.6 % (37.2-46.3); HGB 8.9 g/dL (12.0-15.0); Lymphocytes # (A) 1.94 10*3/uL (0.90-5.00); Lymphocytes % (A) 21.2 %; MCH 27.7 pg (27.0-32.0); MCHC 32.2 g/dL (32.0-37.0); Mean Platelet Volume 9.9 fL (9.5-12.2); Monocytes # (A) 0.79 10*3/uL (0.20-1.00); Monocytes % (A) 8.6 %; Neutrophils # (A) 6.09 10*3/uL (1.80-7.70); Neutrophils % (A) 66.6 %; Platelet Count 367 10*3/uL (140-440); RBC 3.21 10*6/uL (4.10-5.20); RDW 12.7 % (11.5-14.5); WBC 9.14 10*3/uL (4.50-10.00)
[2025-05-01] MEDS: CITRIC ACID-SODIUM CITRATE 15 ML CUP PO ONE (11:22)
[2025-05-01] MEDS: LACTATED RINGERS 1,000 ML IV SCH (11:23)
[2025-05-01] MEDS: ceFAZolin 2 GM in DEXTROSE 5% IN WATER 50 ML IVPB ONE (11:50)
[2025-05-01] MEDS ORDERED: MORPHINE SULFATE (PF) 0.3 MG/0.3 ML SYR ONE (11:59)
[2025-05-01] MEDS ORDERED: PHENYLEPHRINE-0.9% NACL SYG 1,000 MCG/10 ML SYRINGE ONE (11:59)
[2025-05-01] MEDS ORDERED: KETOROLAC 15 MG/ML 1 ML VIAL ONE (11:59)
[2025-05-01] MEDS ORDERED: OXYTOCIN 30 UNITS/500 ML NS BAG IV ONE (11:59)
[2025-05-01] MEDS ORDERED: ONDANSETRON 4 MG/2 ML VIAL ONE (11:59)
[2025-05-01] MEDS ORDERED: fentaNYL (PF) 50 MCG/ML 2 ML AMP ONE (11:59)
--- NOTE | 2025-05-01 12:01 | P.HPOB ---
History of Present Illness H&P Date: 05/01/25 Chief Complaint: 37-0/7, placenta previa, undesired fertility The patient is a 40-year-old 8 para 5-0-2-5 who presents to the hospital today for primary low-transverse section secondary to a diagnosis of persistent complete placenta previa checked on multiple occasions by ultrasound throughout the . Her has been uncomplicated with no episodes of bleeding. Please fall into the category of advanced maternal age declined fraction testing for trisomy. She has additionally requested intraoperative bilateral salpingectomy for permanent sterilization. He has otherwise been uncomplicated and group B strep status is negative. Obstetrical history: 8 para 5-0-2-5 with 5 previous for the current statistics are listed in the history of present illness. EDC of 627 was established by last menstrual period and confirmed by 13-week ultrasound. Laboratory workup demonstrates a blood type of O+ with a negative antibody screen. Rubella status is immune. The remainder of the laboratory workup is within normal limits. Was elevated and the patient failed to complete tolerance test. Group B strep status is negative. Gynecologic history: Unremarkable with no history of any infections to include STDs. Review of Systems Review of systems is confined to history of present illness. 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 History of Any Multi-Drug Resistant Organisms: None Reported Past Surgical History: No Surgical Hx Reported Additional Past Surgical History / Comment(s): 04/07 Past Anesthesia/Blood Transfusion Reactions: No Reported Reaction Past Psychological History: No Psychological Hx Reported Smoking Status: Never smoker Past Alcohol Use History: None Reported Additional Past Alcohol Use History / Comment(s): Smoked briefly as a teenager. Past Drug Use History: None Reported - Past Family History Father History Unknown: Yes Family Medical History: Diabetes Mellitus Medications and Allergies Home Medications Medication Instructions Recorded Confirmed Type Ferrous Sulfate [Iron] 325 mg PO DAILY 02/07/25 05/01/25 History Pnv No.154/Iron Fum/Folic Acid 1 capsule PO DAILY 02/07/25 05/01/25 History [ Plus Vitamin Tablet] Aspirin 81 mg PO DAILY 05/01/25 05/01/25 History Allergies Allergy/AdvReac Type Severity Reaction Status Date / Time No Known Allergies Allergy Verified 06/06/25 10:28 Exam Vital Signs Temp Pulse Resp BP Pulse Ox 05/01/25 10:27 97.6 F 73 16 137/85 100 Intake and Output 04/30/25 05/01/25 05/01/25 22:59 06:59 14:59 Other: Weight 67.132 kg In general, this is a well-developed, well-nourished woman in no acute distress. Her heart has a regular rhythm and rate without murmur. Her lungs are clear to auscultation bilaterally in all odom. Her abdomen is gravid, nondistended, has normal active bowel sounds, is soft, nontender, and without any palpable masses aside from the uterine fundus. Her extremities are without any cyanosis, clubbing, or edema and are nontender to palpation bilaterally. Digital cervical examination is deferred. Results Result Diagrams: 05/01/25 10:25 Abnormal Lab Results - Last 24 Hours (Table) 05/01/25 Range/Units 10:25 RBC 3.21 L (4.10-5.20) 10*6/uL Hgb 8.9 L (12.0-15.0) g/dL Hct 27.6 L (37.2-46.3) % Immature Gran # 0.16 H (0.00-0.04) 10*3/uL Assessment and Plan (1) Family planning Current Visit: No Status: Acute Code(s): Z30.09 - ENCOUNTER FOR OT GENERAL CNSL AND ADVICE ON CONTRACEPTION SNOMED Code(s): 434071108 (2) Placenta previa Current Visit: No Status: Acute Code(s): O44.00 - COMPLETE PLACENTA PREVIA NOS OR WITHOUT HEMOR, UNSP TRI SNOMED Code(s): 13003877 (3) Term Current Visit: No Status: Acute Code(s): Z34.90 - ENCNTR FOR SUPRVSN OF NORMAL , UNSP, UNSP TRIMESTER SNOMED Code(s): 00186309 Plan: Patient is admitted for primary low-transverse section with intraoperative bilateral salpingectomy. The risks and complications have been t horoughly discussed and she has understood and agreed to proceed. Given her degree of current anemia, she iron transfusion prior to discharge this weekend.
[2025-05-01] MEDS ORDERED: diphenhydrAMINE 25 MG CAP PO PRN (13:07)
[2025-05-01] MEDS ORDERED: NALOXONE 0.4 MG/ML 1 ML VIAL IV PRN (13:07)
[2025-05-01] MEDS ORDERED: ONDANSETRON 4 MG/2 ML VIAL IVP PRN (13:07)
[2025-05-01] MEDS ORDERED: ZOLPIDEM 5 MG TAB PO PRN (13:07)
[2025-05-01] MEDS ORDERED: METOCLOPRAMIDE 5 MG/ML 2 ML VIAL IVP PRN (13:07)
[2025-05-01] MEDS ORDERED: diphenhydrAMINE 50 MG/ML 1 ML VIAL IVP PRN (13:07)
[2025-05-01] MEDS ORDERED: SIMETHICONE 80 MG CHEWABLE PO PRN (13:07)
[2025-05-01] MEDS ORDERED: diphenhydrAMINE 50 MG CAP PO PRN (13:07)
--- NOTE | 2025-05-01 13:07 | P.OP ---
Date of Procedure: 05/01/25 Preoperative Diagnosis: #1. 37-0/7 weeks intrauterine #2. Complete placenta previa #3. Undesired fertility Postoperative Diagnosis: Same Procedure(s) Performed: #1. Primary low-transverse section #2. Intraoperative bilateral salpingectomy Anesthesia: spinal Surgeon: Oseas Mcgregor [place] Attendant #1: Regine Lopez Estimated Blood Loss (ml): 543 IV fluids (ml): 1,000 Urine output (ml): 100 Pathology: none sent Condition: stable Disposition: floor Operative Findings: The patient was taken to the operating room where she was delivered by prior for section of a viable 6 pound 5 ounce baby girl with Apgars of 9 at 1 minute and 9 at 5 minutes by breech extraction. The placenta was delivered manually, intact, and grossly normal with a grossly normal three-vessel cord. Previa remained in place. The uterus, tubes, and ovaries were entirely normal to inspection though there were bilateral paratubal cysts which were removed with the fallopian tubes. The bilateral fallopian tubes were removed from the fimbriated ends to the cornua of the uterus and sent as a single specimen. Description of Procedure: It was administered by the anesthesiologist. A Pfannenstiel incision was made and extended into the abdominal cavity without difficulty. The bladder. Incised, and reflected distally. A 2 cm incision was made in the lower uterine segment in the transverse plane at which time the placenta was encountered. After dissecting through and around the placenta, the membranes were located and ruptured with a hemostat for clear fluid. The initial assessment was in the pelvis. However, after rupturing membranes, the feet presented within the incision. Both heels were grasped and the fetus was delivered onto the field with standard breech maneuvers without difficulty. The cord was doubly clamped, cut, and the infant passed for resuscitative measures with weight and Apgars as noted above. The placenta was delivered manually and intact as noted above. The uterus was exteriorized and the anterior cavity of the uterus was swept of any remaining placental or membranous fragments with a laparotomy sponge. The margins of were grasped with Cr clamps and then closed in 2 layers. The first layer was a running locking stitch of 0 chromic catgut from margin to margin followed by a running imbricating stitch of 0 catgut from margin to margin. Hemostasis appeared to be excellent. The posterior cul-de-sac was suctioned with a guard followed by laparotomy sponge. Affirming that the patient desired bilateral salpingectomy, the fimbriated end of the right fallopian tube was grasped with a Cr clamp and elevated. It was from the fimbriated end to the cornua of the uterus using the pier device without difficulty. Any areas of the larger blood vessels were doubly cauterized. A similar operation was carried out on the left side. There were 2 paratubal cysts on the left and 1 on the right which were included with the tubes and sent to pathology as a single specimen. Hemostasis appeared to be excellent. The uterus was replaced within the abdominal cavity and the gutters swept of any remaining blood, fluid, or clot. Any small points of bleeding were made hemostatic with the Bovie. After assuring hemostasis, the parietal peritoneum was loosely reapproximated and then the layer of muscles examined and found to be hemostatic. The fascia was closed with a single running stitch of 0 Vicryl from margin to margin. The subcutaneous tissues were irrigated, made hemostatic with the Bovie and not closed as they were less than a centimeter in depth. The skin was reapproximated with a running subcuticular stitch of 4-0 Vicryl from followed by half-inch Steri-Strips placed with Mastisol. 543 mL. There were no complications. All sponge, instrument, and needle counts were correct. The patient tolerated the procedure well and proceeded to the recovery room in stable condition. Both mother and infant are resting comfortably in recovery.
[2025-05-01] MEDS ORDERED: OXYTOCIN 30 UNITS/500 ML NS 30 UNIT in SALINE 1 500ML.BAG IV SCH (13:15)
[2025-05-01] MEDS: SODIUM FERRIC GLUCONAT-SUCROSE 125 MG in SODIUM CHLORIDE 0.9% 100 ML IVPB ONE (13:39)
[2025-05-01] MEDS: diphenhydrAMINE 50 MG/ML 1 ML VIAL IVP PRN (15:03)
[2025-05-01] MEDS: ACETAMINOPHEN IV (For NPO) 1,000 MG in EMPTY BAG 1 BAG IVPB ONE (16:06)
[2025-05-01] MEDS: KETOROLAC 15 MG/ML 1 ML VIAL IVP PRN (18:57)
[2025-05-01] MEDS: SENNOSIDES-DOCUSATE SODIUM 1 EACH TAB PO SCH (21:36)
[2025-05-01] MEDS: ACETAMINOPHEN TAB 500 MG TAB PO SCH (23:19)
[2025-05-02 07:37] LABS: Basophils # (A) 0.04 10*3/uL (0.00-0.10); Basophils % (A) 0.3 %; Eosinophils # (A) 0.16 10*3/uL (0.04-0.35); Eosinophils % (A) 1.3 %; HCT 22.7 % (37.2-46.3); Lymphocytes # (A) 2.18 10*3/uL (0.90-5.00); Lymphocytes % (A) 17.4 %; MCH 27.9 pg (27.0-32.0); MCHC 31.7 g/dL (32.0-37.0); Monocytes # (A) 1.07 10*3/uL (0.20-1.00); Monocytes % (A) 8.6 %; Neutrophils # (A) 8.84 10*3/uL (1.80-7.70); Neutrophils % (A) 70.6 %; Platelet Count 293 10*3/uL (140-440); RBC 2.58 10*6/uL (4.10-5.20); RDW 12.7 % (11.5-14.5); WBC 12.51 10*3/uL (4.50-10.00)
[2025-05-02 07:46] LABS: HGB 7.2 g/dL (12.0-15.0)
--- NOTE | 2025-05-02 08:31 | P.PN ---
Progress Note - Text Progress Note Date: 05/02/25 Patient doing well. Ambulating w/o paresthesia or weakness. Denies headache. Pruritis treated with benadryl. Pain controlled. Back - spinal site clean and dry POD#1 s/p w/ spinal duramorph - continue multimodal analgesia
--- NOTE | 2025-05-02 11:06 | P.PNOBGPC ---
Subjective - Subjective Interval history: No signs or symptoms of orthostasis Patient reports: Reports appetite normal, Reports voiding normally, Reports pain well controlled, Reports ambulating normally : doing well Objective - Vital Signs Latest vital signs: Vital Signs Temp Pulse Resp BP Pulse Ox 05/02/25 08:00 98.3 F 72 16 104/68 99 05/02/25 03:09 97.9 F 78 18 118/76 98 05/01/25 23:30 97.8 F 75 18 120/72 98 05/01/25 20:30 97.7 F 64 18 118/68 99 05/01/25 14:58 81 16 116/66 05/01/25 14:43 85 16 117/76 05/01/25 14:28 75 16 114/73 05/01/25 14:13 68 16 126/82 05/01/25 13:58 68 16 126/77 05/01/25 13:43 73 16 123/83 05/01/25 13:28 78 16 129/70 100 05/01/25 13:13 71 16 117/74 100 05/01/25 12:58 97.6 F 70 16 117/72 100 Intake and Output 05/01/25 05/02/25 05/02/25 22:59 06:59 14:59 Output Total 800 Balance -800 Output: Urine 800 Uretheral (Merrill) 300 Other: Voiding Method Indwelling Catheter # Voids 2 - Exam Extremities: Present: normal Abdomen: Present: normal appearance, soft. Absent: distention, tenderness Incision: Present: normal, dry, intact Uterus: Present: normal, firm (The uterine fundus is tonic and appropriately tender below the umbilicus.) - Labs Labs: Abnormal Lab Results - Last 24 Hours (Table) 05/02/25 Range/Units 07:14 WBC 12.51 H (4.50-10.00) 10*3/uL RBC 2.58 L (4.10-5.20) 10*6/uL Hgb 7.2 L D (12.0-15.0) g/dL Hct 22.7 L (37.2-46.3) % MCHC 31.7 L (32.0-37.0) g/dL Immature Gran # 0.22 H (0.00-0.04) 10*3/uL Neutrophils # 8.84 H (1.80-7.70) 10*3/uL Monocytes # 1.07 H (0.20-1.00) 10*3/uL Assessment and Plan (1) Family planning Current Visit: No Status: Acute Code(s): Z30.09 - ENCOUNTER FOR OT GENERAL CNSL AND ADVICE ON CONTRACEPTION SNOMED Code(s): 761995203 (2) Placenta previa Current Visit: No Status: Acute Code(s): O44.00 - COMPLETE PLACENTA PREVIA NOS OR WITHOUT HEMOR, UNSP TRI SNOMED Code(s): 70097704 (3) Term Current Visit: No Status: Acute Code(s): Z34.90 - ENCNTR FOR SUPRVSN OF NORMAL , UNSP, UNSP TRIMESTER SNOMED Code(s): 00236549 (4) S/P section Current Visit: No Status: Acute Code(s): Z98.891 - HISTORY OF UTERINE SCAR FROM PREVIOUS SURGERY SNOMED Code(s): 109652647 Plan: Continue routine and operative care. I have encouraged the patient to ambulate in the hallways routinely. I would anticipate discharge home tomorrow pending no complications.
[2025-05-02] MEDS: KETOROLAC 15 MG/ML 1 ML VIAL IVP STA (12:21)
[2025-05-02] MEDS: IBUPROFEN 800 MG TAB PO SCH (19:50)
[2025-05-03 08:10] VITALS: BP 108/72; PULSE 68; RESP 16; TEMP 97.9
--- NOTE | 2025-05-03 10:23 | P.DS ---
Providers Date of admission: 05/01/25 10:00 Expected date of discharge: 05/03/25 Attending physician: Oseas Mcgregor Primary care physician: Stated None - Discharge Diagnosis(es) (1) Family planning Current Visit: No Status: Acute (2) Placenta previa Current Visit: No Status: Acute (3) Term Current Visit: No Status: Acute (4) S/P section Current Visit: No Status: Acute Hospital Course: The patient is a 40-year-old 8 para 5-0-2-5 who presented to the hospital at 37-0/7 weeks by good dating parameters for primary low-transverse section secondary to the diagnosis of persistent complete placenta previa. The previa had been rechecked multiple times during the and remained present throughout and into the third trimester most recently checked at approximately 36 weeks. Her was otherwise uncomplicated. She did fall into the category of advanced maternal age and did not have trisomy testing carried out. She had additionally requested intraoperative bilateral salpingectomy for permanent sterilization. Group B strep status was negative. She was taken to the operating room where she underwent a primary low-transverse section with intraoperative bilateral salpingectomy in an uncomplicated fashion and was delivered of a viable 6 pound 5 ounce baby girl with Apgars of 9 at 1 minute and by extraction with the feet presenting as a presenting part. Her and postoperative course was unremarkable with vital signs remaining stable and her temperature was afebrile throughout. She was deemed stable for discharge on and postoperative day #2 and was discharged to home to follow-up in the office in 2 weeks for an incision check in 6 weeks routinely. Discharge instructions included calling for any significantly increased bleeding or foul-smelling lochia, significantly increased fever or abdominal pain, perineal complaints, breast complaints, incisional complaints, or anything else that concerned her. She was additionally instructed to have nothing in the vagina for at least 6 weeks time to include intercourse and to abstain from any heavy lifting over the same period of time. She was lastly instructed to do no driving until off of all pain medications or 2 weeks time, whichever came first. She understood her instructions and agrees to follow-up as noted above. Discharge medications included continued [id number] analgesic pain medications as well as a prescription for oxycodone 5 mg, 1-2 p.o. every 6 hours as needed pain, #20 dispensed. As she was moderately anemic prior to surgery and continued to be so subsequent to surgery, she did have an iron infusion on post operative day #1. She was also additionally instructed to continue iron sulfate orally once daily. maternal blood type is O+ and rubella status is immune. Discharge hemoglobin and hematocrit were 7.2 and 22.7. The patient was asymptomatic from her anemia. Procedures: #1. Primary low-transverse section #2. Intraoperative bilateral salpingectomy Patient Condition at Discharge: Stable Plan - Discharge Summary New Discharge Prescriptions: No Action Ferrous Sulfate [Iron] 325 mg PO DAILY Pnv No.154/Iron Fum/Folic Acid [ Plus Vitamin Tablet] 1 capsule PO DAILY Aspirin 81 mg PO DAILY Discharge Medication List Ferrous Sulfate [Iron] 325 mg PO DAILY 02/07/25 [History] Pnv No.154/Iron Fum/Folic Acid [ Plus Vitamin Tablet] 1 capsule PO DAILY 02/07/25 [History] Aspirin 81 mg PO DAILY 05/01/25 [History] Follow up Appointment(s)/Referral(s): Oseas Mcgregor MD [STAFF PHYSICIAN] - 05/14/25 2:45 pm (06/10/25 @ 1:15 PM) Discharge Disposition: HOME SELF-CARE
== END 2025-05-03 12:15 | disposition home or self-care (01) | DRG 539 ==
LOC: 4FBP 10:00
PROVIDERS: ADMIT Obstetrics & Gynecology; ATTEND Obstetrics & Gynecology
PROC: 0UT70ZZ Resection of Bilateral Fallopian Tubes, Open Approach (ICD-10-PCS; principal; 2025-05-01 12:00)
PROC: 10D00Z1 Extraction of Products of Conception, Low, Open Approach (ICD-10-PCS; principal; 2025-05-01 12:00)
DX: O44.03 Complete placenta previa NOS or without hemorrhage, third trimester (principal); O34.83 Maternal care for other abnormalities of pelvic organs, third trimester; O99.02 Anemia complicating childbirth; Z30.2 Encounter for sterilization; L29.9 Pruritus, unspecified; N83.8 Other noninflammatory disorders of ovary, fallopian tube and broad ligament; Z37.0 Single live birth; Z3A.37 37 weeks gestation of pregnancy; Z79.82 Long term (current) use of aspirin
CPT/HCPCS: 85025; 86850; 86900; 86901; 88302